=== PATIENT | male | born 1960 | race Caucasian/White ===

== ENCOUNTER 2023-07-06 08:45 | Outpatient (CLI) | payer MEDICARE, SELFPAY ==
--- NOTE | ~2023-07-06 | XR_ITS ---
EXAMINATION: XR lg joint inject/asp w image DATE: 07/06/2023 09:39 INDICATION: Left hip osteoarthritis with pain TECHNIQUE: A time-out was performed to verify the patient's name, date of , and procedure to b e performed. The procedure including the risks, benefits, and alternatives was discussed with the pat ient. Risks discussed included bleeding and infection. The patient understood the risks and agreed to proceed. The skin overlying the left hip joint was prepped and draped in usual sterile fashion. An esthetic was administered with 1% lidocaine subcutaneously. A 22 G needle was advanced under fluoros copic guidance into the joint. Injection of 1 mL of Omnipaque 240 confirmed intra-articular position of the needle. Subsequently, injectate consisting of 3 mL of a 2:1 mixture of 0.5% Marcaine: 80 mg/ mL Depo-Medrol for a total dosage of 80 mg Depo-Medrol was instilled. Washout of contrast was seen co nfirming intra-articular administration. The needle was removed and the entry site was cleaned and dr essed. There were no immediate complications. Fluoroscopy exposure time was 0.1 minutes. The total n umber of images was 2. Total DAP was 0.357 Gycm^2 FINDINGS: Real-time fluoroscopy demonstrates the needle in the left hip joint. Patient's pain prior t o procedure:5/10. Patient's pain following the procedure: 0/10. IMPRESSION: 1. Successful left hip joint injection of local anesthetic and steroid with decrease in the patient's presenting pain. Reviewed, dictated and finalized at location A. GER CULINARY IMPRESSION: 1. Successful left hip joint injection of local anesthetic and steroid with dec rease in the patient's presenting pain.
== END 2023-07-06 08:46 | disposition home or self-care (01) ==
PROVIDERS: PCP Family Medicine; Visit Provider Orthopaedic Surgery
DX: M16.12 Unilateral primary osteoarthritis, left hip (principal)
CPT/HCPCS: 20610; 77002; J1040; Q9966

== ENCOUNTER 2023-07-26 14:23 | Emergency (ER) | payer MEDICARE, SELFPAY ==
--- NOTE | 2023-07-26 14:26 | ED.URI ---
HPI - URI/Sore Throat General Chief Complaint: Nausea/Vomiting/Diarrhea Stated Complaint: vomiting, flu like symptoms Time Seen by Provider: 07/26/23 14:26 Source: patient Mode of arrival: ambulatory Limitations: no limitations History of Present Illness HPI Narrative: Jhony is a 63-year-old male patient presenting to the clinic today with complaints of vomiting and flu-like symptoms. He reports symptoms started 2 days ago. He reports he is having nausea, vomiting, diarrhea, cough, and nasal congestion. Has had a temperature greatest of 100.7F. Denies any chest pain, shortness breath, or abdominal pain. Has had approximately 10 diarrhea stools per day and has vomited approximately 6 times in the past 2 days. Denies any blood in his stool or emesis. MD elicited complaint: sore throat and nasal congestion Related Data Home Medications Medication Instructions Recorded Confirmed albuterol sulfate 90 mcg/actuation 2 puff inhalation Q2-6H 07/26/23 07/26/23 aerosol inhaler atorvastatin 20 mg tablet 40 mg PO DAILY 07/26/23 07/26/23 furosemide 20 mg tablet 20 mg PO DAILY 07/26/23 07/26/23 gabapentin 400 mg capsule 400 mg PO DAILY 07/26/23 07/26/23 levetiracetam 750 mg tablet 750 mg PO DAILY 07/26/23 07/26/23 mupirocin 2 % topical ointment 1 applic topical DAILY 07/26/23 07/26/23 rifaximin 550 mg tablet (Xifaxan) 550 mg PO DAILY 07/26/23 07/26/23 tiotropium bromide 2.5 2 puff inhalation DAILY 07/26/23 07/26/23 mcg/actuation mist for inhalation (Spiriva Respimat) trazodone 150 mg tablet 100 mg PO QHS 07/26/23 07/26/23 Allergies Allergy/AdvReac Type Severity Reaction Status Date / Time hydrochlorothiazide Allergy Mild Unknown Verified 07/26/23 14:58 lisinopril Allergy Mild Unknown Verified 07/26/23 14:58 Bumble Bee Allergy Mild Unknown Uncoded 07/26/23 14:58 Review of Systems Review of Systems: Pertinent positives per HPI. Patient denies anyrash, headache, visual changes, dizziness, shortness of breath, chest pain, palpitations, constipation, abdominal pain, or any urinary issues. PMFSH Surgical History Surgical History H/O right knee surgery H/O rotator cuff surgery right and left H/O Spinal surgery History of hernia surgery History of total right hip arthroplasty Family History Family History Unknown Asthma Hypertension Depression Heart disease Hyperlipidemia Social History Social History Smoking status: Current every day smoker Tobacco type: cigarettes Alcohol intake: never Substance use type: does not use Living arrangements: with family Occupation/Education: other Additional occupation/education comments: disabled Gender identity (if verbalized by the patient): Male Comments At the time of my signature, I reviewed and agree with the nursing past medical, surgical, social, and family history. There is no relevant family history pertinent to the patient complaint. Exam Narrative: General: Well-developed, well nourished, in no apparent distress Head: Normocephalic, atraumatic Eyes: Pupils equally round and reactive to light bilaterally, EOM intact, sclera and conjunctive clear, no discharge, lids normal Ears: TMs intact and clear, ear canals ceruminous, no drainage, grossly hearing normal. Nose: Nares patent, clear discharge, no inflammation, no sinus tenderness. Mouth: Oral pharynx without lesions or masses, good dentition, MM dry. Neck: Supple, trachea midline, no enlargement of anterior or posterior cervical nodes, no thyroid masses or goiter palpable. Cardio: Regular rate and rhythm, s1 and s2 normal, no murmur appreciated. Resp: Clear to auscultation bilaterally, no rhonchi, rales, wheezing or rubs Abdomen: Soft, pliable, bowel sounds present all 4 quadrants, nontender to palpation, no orga
[2023-07-26 14:32] VITALS: BP 169/97; PULSE 87; RESP 16; TEMP 36.2; O2SAT 100
[2023-07-26 14:46] VITALS: BP 144/84; PULSE 95
[2023-07-26 14:47] VITALS: BP 155/102; PULSE 86
[2023-07-26 14:48] VITALS: BP 147/99; PULSE 95
== END 2023-07-26 15:10 | disposition home or self-care (01) ==
PROVIDERS: Emergency Provider Nurse Practitioner Family; PCP Family Medicine
DX: K52.9 Noninfective gastroenteritis and colitis, unspecified (principal); E86.0 Dehydration; B34.9 Viral infection, unspecified; Z20.822 Contact with and (suspected) exposure to COVID-19; F17.210 Nicotine dependence, cigarettes, uncomplicated; Z96.641 Presence of right artificial hip joint
CPT/HCPCS: 81003; 87426; 87804; 99213; G0463

== ENCOUNTER 2024-05-28 13:16 | Outpatient (CLI) | payer MEDICARE, SELFPAY ==
[2024-05-28 14:23] LABS: Albumin Level 4.2 g/dL (3.5-5.1)
== END 2024-05-28 13:17 | disposition home or self-care (01) ==
PROVIDERS: PCP Family Medicine; Visit Provider Orthopaedic Surgery
DX: K74.60 Unspecified cirrhosis of liver (principal); K74.00 Hepatic fibrosis, unspecified
CPT/HCPCS: 36415; 82040

== ENCOUNTER 2024-10-28 16:11 | Emergency (ER) | payer MEDICARE, SELFPAY ==
[2024-10-28 16:16] VITALS: BP 178/96; PULSE 106; RESP 12; TEMP 36.7; O2SAT 93
--- OUTSIDE RECORDS SUMMARY | 2024-10-28 16:28 | XMS_ITS | Data Portability ---
Author Organization [place] [facility], Main Office Address [address] [place] [address] Care Team Providers Care Lapping Machine Tender Name Role Phone NAKUSH WAN Primary Care Provider Assessment Encounter Date Assessment Date Assessment LastModified by Organization Details LastModified Time 02/23/2024 02/23/2024 63 yo M with - DM II, new - HLD, improved - B/L KNEE PAIN, chronic - HTN - GERD - NEUROPATHY - CHRONIC INSOMNIA - COPD - CIRRHOSIS OF LIVER - INTRACRANIAL ANEURYSM - SMOKER - H/O ALCOHOL ABUSE HbA1c: 6.7(11/11/23) LDCT chest: 11/11/23. Annual labs: 11/01/23. X-ray knees: 11/05/22. Annual labs: 10/13/22. LDCT chest: 08/12/22. D/w pt in detail about his conditions, recent labs & imagines and further plan of care. Meds as directed. Cont OTC knee sleeve as directed. Diet and exercise explained in detail. BP & DM diary education given and call us if any concerns. Currently smoking about few cigs per day. Encouraged pt to quit. F/u with Ophtho as per schedule. F/u with Paint Supervisor as per schedule. Cont f/u with Neurosurgeon at [place] as per schedule. Cont f/u with Neuro at [place] as per schedule. Cont f/u with Emergency Management Program Specialist at [facility] as per schedule. Cont f/u with PT as per schedule. HM: Colonoscopy - 2019, normal as per pt. Cont f/u with GI as per schedule. US AAA - At 67 yrs. Flu - Pt declined. Tdap, Pneumo, Shingrix - At pharmacy/HD. F/u in 3 months. A1c in 05/27. Annual labs, LDCT in 10/26. Not available 02/23/2024 13:00:18 08/02/2024 08/02/2024 64 yo M with - DM II, improved - HLD, improved - B/L KNEE PAIN, chronic - HTN - GERD - NEUROPATHY - CHRONIC INSOMNIA - COPD - CIRRHOSIS OF LIVER - INTRACRANIAL ANEURYSM - SMOKER - H/O ALCOHOL ABUSE HbA1c: 6.7(11/11/23) - 5.7(05/14/25) LDCT chest: 11/11/23. Annual labs: 11/01/23. X-ray knees: 11/05/22. Annual labs: 10/13/22. LDCT chest: 08/12/22. D/w pt in detail about his conditions, recent labs & imagines and further plan of care. Meds as directed. Cont OTC knee sleeve as directed. Diet and exercise explained in detail. BP & DM diary education given and call us if any concerns. Currently smoking about few cigs per day. Encouraged pt to quit. F/u with Ophtho as per schedule. F/u with Paint Supervisor as per schedule. Cont f/u with Neurosurgeon at [place] as per schedule. Cont f/u with Neuro at [place] as per schedule. Cont f/u with Emergency Management Program Specialist at [facility] as per schedule. Cont f/u with PT as per schedule. HM: Colonoscopy - 2019, normal as per pt. Cont f/u with GI as per schedule. US AAA - At 67 yrs. Flu - Pt declined. Tdap, Pneumo, Shingrix - At pharmacy/HD. F/u in 3 months. Annual labs, LDCT in 10/26. Not available 08/02/2024 11:35:39 Plan of Treatment Reminders Order Date Submit Date Provider Last Modified By Organization Details Last Modified Time Details Appointments Physical/ Annual Wellness 30 2024 10:00A M Ankush Wan MD Not available Not available Not available Lab glycohemo globin, total, blood 2023 024 [email or web address] [facility] [address] [place], [address], 05/14/2024 16:14:45 Referral None recorded. Procedures None recorded. Surgeries None recorded. Imaging None recorded. Medication Orders propranol ol 20 mg tablet 2024 [facility]37885, [address], [place], [place], [id number], 08/02/2024 12:27:08 spironola ctone 50 mg tablet 2024 025 [facility] #92327, [address], [place], [place], [id number], 08/02/2024 12:27:12 furosemid e 20 mg tablet 2024 [facility] #18788, [address], [place], [place], [id number], 08/02/2024 12:27:04 albuterol sulfate HFA 90 mcg/actua tion aerosol inhaler 2024 025 [facility] #55571, [address], [place], [place], [id number], 08/02/2024 12:26:59 Spiriva Respimat 2.5 mcg/actua tion solution for inhalatio n 2024 [facility] #79071, [address], [place], [place], [id number], 08/02/2024 12:26:39 atorvasta tin 20 mg tablet 2024 [facility] #68436, [address], [place], [place], [id number], 08/02/2024 12:27:05 trazodone 150 mg tablet 2024 025 [facility] #00160, [address], [place], [place], [id number], 08/02/2024 12:26:49 Xifaxan 550 mg tablet 2024 025 [facility] #27818, [address] [facility], [place], [place], [id number], 08/02/2024 12:27:03 levetirac etam 750 mg tablet 2024 025 [facility] #36823, [address] [facility], [place], [place], [id number], 08/02/2024 12:27:13 metformin ER 500 mg tablet,ex tended release 24 hr 2024 025 [facility] #41358, [address] [facility], [place], [place], [id number], 08/02/2024 12:27:03 gabapenti n 400 mg capsule 2024 025 [facility] #78011, [address] [facility], [place], [place], [id number], 08/02/2024 12:27:06 propranol ol 20 mg tablet 2023 024 [facility] [address] [facility], [place], [place], [id number], 02/23/2024 12:55:47 spironola ctone 50 mg tablet 2023 024 [facility], [address] [facility], [place], [place], [id number], 02/23/2024 12:55:45 furosemid e 20 mg tablet 2023 024 [facility], [address] [facility], [place], [place], [id number], 02/23/2024 12:55:39 albuterol sulfate HFA 90 mcg/actua tion aerosol inhaler 2023 024 [facility]69886, [address] [facility], [place], [place], [id number], 02/23/2024 12:55:45 Spiriva Respimat 2.5 mcg/actua tion solution for inhalatio n 2023 [facility] #22591, [address] [facility], [place], [place], [id number], 02/23/2024 12:55:47 atorvasta tin 20 mg tablet 2023 [facility] #06740, [address] [facility], [place], [place], [id number], 02/23/2024 12:55:49 trazodone 150 mg tablet 2023 [facility] #67756, [address] [facility], [place], [place], [id number], 02/23/2024 12:55:43 Xifaxan 550 mg tablet 2023 [facility] #85186, [address] [facility], [place], [place], [id number], 02/23/2024 12:55:43 levetirac etam 750 mg tablet 2023 [facility] #67864, [address] [facility], [place], [place], [id number], 02/23/2024 12:55:46 metformin ER 500 mg tablet,ex tended release 24 hr 2023 [facility] #15738, [address] [facility], [place], [place], [id number], 02/23/2024 12:55:40 gabapenti n 400 mg capsule 2023 [facility] #41615, [address] [facility], [place], [place], [id number], 02/23/2024 12:55:42 Patient TargetsNo targets recorded. Patient InstructionsNo instructions recorded. Reason for Referral None Reported. Results Created Date Observation Date Name Description Value Unit Range Abnormal Flag Note LastModifiedBy Organization Detail LastModifiedTime 02/23/20 24 02/24/2024 HEMOG LOBIN A1C HA1C 5.8 % 4.0-6. 0 Diabe marshall Scree crystal Crite tawana: <5.7% Consi stent with absen ce of diabe marshall 5.7-6 .4% Consi stent with incre ased risk for diabe marshall (pred iabet es) >OR=6 .5% Consi stent with diabe marshall REFER ENCE: Diabe marshall Care (Cifuentes ppl.1 ):s13 -s22 Not Available [facility] [address] [place], [address], 02/24/2024 09:37:58 05/14/20 24 05/14/2024 HEMOG LOBIN A1C HA1C 5.7 % 4.0-6. 0 Diabe marshall Scree crystal Crite tawana: <5.7% Consi stent with absen ce of diabe marshall 5.7-6 .4% Consi stent with incre ased risk for diabe marshall (pred iabet es) >OR=6 .5% Consi stent with diabe marshall REFER ENCE: Diabe amrshall Care (Cifuentes ppl.1 ):s13 -s22 Not Available [facility] [address] [place], [address], 05/14/2024 20:53:43 Result Notes None recorded. Problems Name Problem SNOMED Code Status Onset Date Resolution Date Notes Provider Name and Address Organization Details Recorded Time Shoulder joint pain 429559053 Lucinda Brown LPN,CREEL OPERATOR null, [place] [facility] 4 13:37:45 Recurrent dislocation of shoulder region 05448544 Lucinda Brown LPN,CREEL OPERATOR null, [place] [facility] 4 13:37:45 Disorder of rotator cuff 643092153 Lucinda Brown, DECATIZER,CREEL OPERATOR null, [place] [facility] 4 13:37:45 Disorder of bursa of shoulder region 82376541 Active Jaye Brown LPN,CREEL OPERATOR null, [place] [facility] 4 13:37:45 Osteoarthri tis of shoulder region 57238686 Active Jaye Brown LPN,CREEL OPERATOR null, [place] [facility] 4 13:37:45 Impacted cerumen of bilateral ears 4987805230700 108 Active 2022 Jaye Brown LPN,CREEL OPERATOR null, [place] [facility] 4 13:37:45 Intracrania l aneurysm [id number] [facility] 2022 Jaye Brown LPN,CREEL OPERATOR null, [place] [facility] 4 13:37:45 Chronic obstructive pulmonary disease 65453588 Active 2022 Jaye Brown LPN,CREEL OPERATOR null, [place] [facility] 4 13:37:45 Cirrhosis of liver 50120059 Active 2022 Jaye Brown LPN,CREEL OPERATOR null, [place] [facility] 4 13:37:45 Gastroesoph ageal reflux disease without esophagitis [id number] [facility] 2022 Jaye Brown LPN,CREEL OPERATOR null, [place] [facility] 4 13:37:45 Bronchitis 37721916 Active 2022 Jaye Brown LPN,CREEL OPERATOR null, [place] [facility] 4 13:37:45 History of alcohol abuse 590854054 Active 2022 Jaye Brown LPN,CREEL OPERATOR null, [place] [facility] 4 13:37:45 Hypertensiv e disorder 88397862 Active 2022 Jaye Brown LPN,CREEL OPERATOR null, [place] [facility] 4 13:37:45 Neuropathy 556884944 Active 2022 Jaye Brown LPN,CREEL OPERATOR null, [place] [facility] 4 13:37:45 Chronic insomnia 815387985 Active 2022 Jaye Brown LPN,CREEL OPERATOR null, [place] [facility] 4 13:37:45 Hyperlipide cole 52763799 Active 2022 Jaye Brown LPN,CREEL OPERATOR null, [place] [facility] 4 13:37:45 Pain of left knee joint 2740770080604 07 Active 2022 Jaye Brown LPN,CREEL OPERATOR null, [place] [facility] 4 13:37:45 Pain of right knee joint 0834196910587 00 Active 2022 Jaye Brown LPN,CREEL OPERATOR null, [place] [facility] 4 13:37:45 Hepatic encephalopa thy 18973462 Active 2022 Jaye Brown LPN,CREEL OPERATOR null, [place] [facility] 4 13:37:45 Chondromala karen of bilateral patellas 0475934934418 9100 Active 2022 Jaye Brown LPN,CREEL OPERATOR null, [place] [facility] 4 13:37:45 Acute meniscal tear, medial 246368245 Active 2022 Jaye Brown LPN,CREEL OPERATOR null, [place] [facility] 4 13:37:45 Osteoarthri tis of left hip joint 1383930229246 08 Active 2022 Jaye Brown LPN,CREEL OPERATOR null, [place] [facility] 4 13:37:45 Acute meniscal tear, medial 399493320 Active 2022 Jaye Brown LPN,CREEL OPERATOR null, [place] [facility] 4 13:37:45 Pain of bilateral knee joints 4859428481457 04 Active 2022 Jaye Brown LPN,CREEL OPERATOR null, [place] [facility] 4 13:37:45 Seizure disorder 573649373 Active 2022 Jaye Brown LPN,CREEL OPERATOR null, [employer] [facility] [employer] [facility] [employer] 4 13:37:45 Type 2 diabetes mellitus without complicatio n 000523300 Active 2023 Ankush Wan MD [address], [address], [place], [address], [employer] 4 14:13:10 Cigarette smoker 66597323 Active 2024 Ankush Wan MD [address], [address], [place], [address], [facility] 18:43:00 Smoker 92632009 Active 2024 Ankush Wan MD [address], [address], [place], [address], [employer] 11:34:39 Problem Notes None recorded. Procedures Surgical History Date Name Laterality Status Provider Name and Address Organization Details Recorded Time 08/02/19 25 Smoking Cessation completed Ankush Wan MD [address], [address], [place], [address], [email or web address] 08/02/2024 11:36:09 06/25/20 24 Nail Debridement completed Jewel Hutrado DPM [address], [address], [place], [address], [employer] 06/25/2024 16:09:45 12/13/19 24 Nail Debridement completed Jewel Hurtado DPM [address], [address], [place], [address], [facility] 12/13/2023 14:14:54 11/22/19 24 Ear Irrigation completed Ankush Wan MD [address], [address], [place], [address], [employer] [facility] 11/22/2023 14:17:53 11/01/19 24 Medicare Wellness CPT Code, subsequent completed Nicolas White [employer] [facility] 11/01/2023 11:59:55 09/20/19 24 Transitional_Car e_Management completed Nicolas White [place] [facility] 09/20/2023 12:26:05 08/09/19 24 Smoking Cessation completed Ankush Wan MD [address] [facility], [address], [place], [address], [facility] 08/09/2023 14:56:51 05/19/20 23 Smoking Cessation completed Ankush Wan MD [address] [facility], [address], [place], [address], [facility] 05/19/2023 14:54:27 01/14/20 23 Ortho - Cortisone Injection completed Isac Mai MD [address] [facility], [address], [place], [address], [facility] 01/13/2023 13:51:58 09/23/19 23 Ear Irrigation completed Ankush Wan MD [address] [facility], [address], [place], [address], [facility] 09/22/2022 11:06:53 Knee arthroscopy/surg luz completed Not Available [facility] 09/02/2022 01:48:12 Shoulder joint surgery completed Not Available [facility] 09/02/2022 01:48:12 prosthetic arthroplasty of hip completed Not Available [facility] 09/02/2022 01:48:12 Thoracic surgery ss completed Not Available [facility] 09/02/2022 01:48:12 total replacement of hip completed Jaye Brown LPN, [facility] [place] [facility] 08/01/2023 13:37:45 Shoulder completed Jaye Brown LPN, [facility] [place] [facility] 08/01/2023 13:37:45 Knee completed Jaye Brown LPN, [facility] [place] [facility] 08/01/2023 13:37:45 Hernia Surgery completed Jaye Brown LPN, [facility] [place] [facility] 08/01/2023 13:37:45 Back Surgery completed Jaye Brown LPN, [facility] [place] [facility] 08/01/2023 13:37:45 Imaging Results None recorded. Procedure Notes None recorded. Medical Equipment None Reported. Allergies Allergen ID Allergen Name Allergen Category Reaction Reaction Severity Criticality Documentation Date Start Date Code Code System Note Provider Name and Address Organization Details Recorded Time 57921 lisinopri l medicatio n Not available Not available Not available 09/02/2022 96924 RxNorm Michelle Gaviria RN null, [facility] 4 14:29:05 35022 Lexapro medicatio n Not available Not available Not available 01/13/2023 70403 1 [facility], [facility] 4 13:37:45 96288 lisinopri l medicatio n Not available Not available Not available 01/13/2023 02544 RxNorm [facility], [facility] 4 13:37:45 Medications Name Sig Start Date Stop Date Status Note LastModified by Organization Details LastModified Time prednisone 10 mg tablet 05/19 completed Not Available Not Available Not Available atorvastati n 20 mg tablet TAKE 1 TABLET BY MOUTH EVERY DAY AT BEDTIME active Not Available Not Available No t Available atorvastati n 10 mg tablet Take 1 tablet every day by oral route at bedtime for 90 days. 04/28 completed Not Available Not Available Not Available azithromyci n 250 mg tablet TK 2 TS PO ON DAY 1, THEN TK 1 T PO D FOR 4 DAYS 01/13 completed Not Available Not Available Not Available hydrocortis one 1 % topical ointment APPLY 2 TIMES A DAY FOR 14 DAYS 01/13 completed Not Available Not Available Not Available gabapentin 400 mg capsule TAKE 1 CAPSULE BY MOUTH EVERY 8 HOURS DIRECTED active Not Available Not Available No t Available Debrox 6.5 % ear drops INSTILL 4 DROPS INTO AFFECTED EAR(S) BY OTIC ROUTE 2 TIMES PER DAY 08/09 completed Not Available Not Available Not Available thiamine HCl (vitamin B1) 100 mg tablet Take 1 tablet every day by oral route. active Not Available Not Available No t Available amlodipine 5 mg tablet active Not Available Not Available Not Available prednisone 10 mg tablets in a dose pack Take 1 tab by mouth, 3 times a day for 3 daysTake 1 tab by mouth 2 times a day for 2 daysTake 1 tab by mouth once a day for 1 day 08/09 completed Not Available Not Available Not Available propranolol 10 mg tablet TAKE 1 TABLET BY MOUTH TWICE DAILY DIRECTED 08/09 completed Not Available Not Available Not Available Kenalog 10 mg/mL suspension for injection Take 40 mg by injection route. 08/09 completed [facility]: [phone]- [phone] Not Available Not Available Not Available cephalexin 500 mg capsule TAKE 1 CAPSULE BY MOUTH TWICE DAILY 01/13 completed Not Available Not Available Not Available pantoprazol e 40 mg tablet,shaneka yed release TAKE 1 TABLET BY MOUTH EVERY DAY IN THE MORNING 2024 active Not Available Not Available Not Avai lable trazodone 150 mg tablet Take 1 tablet every day by oral route at bedtime for 90 days. 2024 active Not Available Not Available Not Avai lable gabapentin 300 mg capsule TAKE 1 CAPSULE BY MOUTH EVERY 8 HOURS DIRECTED 01/13 completed Not Available Not Available Not Available levetiracet am 750 mg tablet TAKE 1 TABLET BY MOUTH EVERY 12 HOURS DIRECTED active Not Available Not Available No t Available mupirocin 2 % topical ointment APPLY TO NARES TWICE DAILY STARTING 5 DAYS PRIOR TO SURGERY ENDING THE DAY PRIOR active Not Available Not Available No t Available furosemide 20 mg tablet TAKE 1 TABLET BY MOUTH EVERY DAY IN THE MORNING active Not Available Not Available No t Available methylpredn isolone 4 mg tablets in a dose pack FOLLOW PACKAGE DIRECTION S 01/13 completed Not Available Not Available Not Available albuterol sulfate HFA 90 mcg/actuati on aerosol inhaler INHALE 2 PUFFS BY MOUTH EVERY 4 TO 6 HOURS NEEDED active Not Available Not Available No t Available propranolol 20 mg tablet TAKE 1 TABLET BY MOUTH TWICE DAILY DIRECTED 2024 active Not Available Not Available Not Avai lable ondansetron 4 mg disintegrat ing tablet DISSOLVE 1 TABLET ON THE TONGUE EVERY 6 HOURS FOR 3 DAYS NEEDED FOR NAUSEA OR VOMITING 08/09 completed Not Available Not Available Not Available metformin ER 500 mg tablet,exte nded release 24 hr Take 1 tablet twice a day by oral route after meal(s) for 90 days. 2024 active Not Available Not Available Not Avai lable spironolact one 50 mg tablet Take 1 tablet every day by oral route as directed for 90 days. 2024 active Not Available Not Available Not Avai lable amoxicillin 875 mg-hope lutz clavulanate 125 mg tablet 07/29 completed Not Available Not Available Not Available oxycodone 5 mg tablet active Not Available Not Available No t Available lactulose 10 gram/15 mL oral solution TAKE 15 ML BY MOUTH TWICE DAILY DIRECTED 08/09 completed Not Available Not Available Not Available Centrum active Not Available Not Avail able Not Available Xifaxan 550 mg tablet Take 1 tablet twice a day by oral route as directed for 30 days. 2024 active Not Available Not Available Not Avai lable Probiotic active Not Available Not Chely ilable Not Available ropivacaine (PF) 5 mg/mL (0.5 %) injection solution Take 40 mg by injection route. 08/09 completed [facility] [phone] Not Available Not Available Not Available Spiriva Respimat 2.5 mcg/actuati on solution for inhalation INHALE 1 PUFF BY MOUTH EVERY DAY DIRECTED active Not Available Not Available No t Available Spiriva Respimat 1.25 mcg/actuati on solution for inhalation INHALE 1 PUFF BY MOUTH ONCE A DAY 01/13 completed Not Available Not Available Not Available Vitals Date Recorded Body height Body mass index (BMI) Body weight Oxygen saturation Oxygen saturation in Arterial blood by Pulse oximetry Body temperature Heart rate Systolic blood pressure Diastolic blood pressure Provider Name and Address Organization Details Last Updated DateTime 4 172.72 cm 24.8 kg/m2 55850.5 6 g 96 % 96 % 98.2 [degF] 70 /min 165 mm[Hg] 89 mm[Hg] NOELLE Pisano Brett ND [employer] [facility] 4 12:25:16 Date Recorded Body height Body mass index (BMI) Body weight Body temperature Heart rate Oxygen saturation Oxygen saturation in Arterial blood by Pulse oximetry Systolic blood pressure Diastolic blood pressure Provider Name and Address Organization Details Last Updated DateTime 4 172.72 cm 23.6 kg/m2 19604.5 2 g 98.1 [degF] 78 /min 98 % 98 % 138 mm[Hg] 80 mm[Hg] Nicolas White [place] [employer] 4 12:46:59 Date Recorded Body height Body mass index (BMI) Body weight Heart rate Respiratory rate Oxygen saturation Oxygen saturation in Arterial blood by Pulse oximetry Body temperature Systolic blood pressure Diastolic blood pressure Provider Name and Address Organization Details Last Updated DateTime 4 172.72 cm 23.6 kg/m2 70038.8 2 g 69 /min 14 /min 97 % 97 % 98 [degF] 130 mm[Hg] 80 mm[Hg] Nanci Arnett [place] [employer] [facility] 4 14:02:06 Date Recorded Body height Body mass index (BMI) Body weight Body temperature Oxygen saturation Oxygen saturation in Arterial blood by Pulse oximetry Heart rate Provider Name and Address Organization Details Last Updated DateTime 5 172.72 cm 24.7 kg/m2 61927.6 6 g 97.5 [degF] 96 % 96 % 77 /min Mary Lou Villasenor RN [place] [employer] [facility] 5 12:16:40 Date Recorded Systolic blood pressure Diastolic blood pressure Provider Name and Address Organization Details Last Updated DateTime 08/02/2024 146 mm[Hg] 84 mm[Hg] Ankush Wan MD [address] [facility], [address], [address], [place] [employer] [facility] 08/02/2024 12:30:04 Social History Question Answer Notes LastModified by Organization Details LastModified Time Tobacco Smoking Status Current Every Day Smoker TRACY Bonilla, [place] [employer] [facility] 01/13/2023 13:48:15 Do You Have An Advance Directive? No [id number] Information not available 09/02/2022 What Is Your Level Of Alcohol Consumption? None Information not available 01/13/2023 Is Blood Transfusion Acceptable In An Emergency? Yes Information not available 08/09/2023 What Is Your Level Of Caffeine Consumption? None Information not available 08/09/2023 What Is Your Code Status? Full Code Information not available 08/09/2023 In The 14 Days Before Symptom Onset, Have You Had Close Contact With A Laboratory-conf irmed COVID-19 While That Case Was Ill? No [id number] Information not available 09/02/2022 In The 14 Days Before Symptom Onset, Have You Had Close Contact With A Person Who Is Under Investigation For COVID-19 While That Person Was Ill? No [id number] Information not available 09/02/2022 Are You Currently Employed? No Disability Information not available 08/09/2023 What Type Of Diet Are You Following? REGULAR [id number] Information not available 09/02/2022 Which Illicit Or Recreational Drugs Have You Used? None Information not available 08/09/2023 What Is The Highest Grade Or Level Of School You Have Completed Or The Highest Degree You Have Received? [id number] X2 MIGRATION.300 [id number] Information not available 09/02/2022 How Many Days Of Moderate To Strenuous Exercise, Like A Brisk Walk, Did You Do In The Last 7 Days? 3 Information not available 08/09/2023 On Those Days That You Engage In Moderate To Strenuous Exercise, How Many Minutes, On Average, Do You Exercise? 15 Information not available 08/09/2023 Have There Been Any Changes To Your Family Or Social Situation? Yes Anuresym Surgery In 2 Weeks Information not available 08/09/2023 Are There Any Guns Present In Your Home? Yes MIGRATION.030 [id number] Information not available 09/02/2022 [facility] MIGRATION.030 [id number] Information not available 09/02/2022 Do You Have A Medical Power Of Ecg Technician? No MIGRATION.030 101706 Information not available 09/02/2022 What Was The Date Of Your Most Recent Tobacco Screening? 12/13/2023 Information not available 12/13/2023 How Many Children Do You Have? 0 Information not available 08/09/2023 Do You Have Any Pets? No MIGRATION.0301 [id number] Information not available 09/02/2022 What Is Your Relationship Status? MIGRATION.0301 [id number] Information not available 09/02/2022 Do You Use Your Seat Belt Or Car Seat Routinely? Yes Information not available 08/09/2023 Do You Have Smoke And Carbon Monoxide Detectors In Your Home? Yes MIGRATION.0301 [id number] Information not available 09/02/2022 At What Age Did You Start Smoking Tobacco? 32 MIGRATION.0301 [id number] Information not available 09/02/2022 Are You Passively Exposed To Smoke? No MIGRATION.0301 573647 Information not available 09/02/2022 Are There Any Smokers In Your House? No MIGRATION.0301 [id number] Information not available 09/02/2022 How Much Tobacco Do You Smoke? No 2 Cig Per Day Information not available 08/09/2023 Do You Participate In Social Media? No Information not available 08/09/2023 What Types Of Sporting Activities Do You Participate In? Walking Information not available 08/09/2023 Do You Feel Stressed (tense, Restless, Nervous, Or Anxious, Or Unable To Sleep At Night)? [id number] MIGRATION.030 242685 Information not available 09/02/2022 Do You Use Any Illicit Or Recreational Drugs? Yes MJ- Says He Is Quitting Information not available 08/09/2023 Do You Use Sunscreen Routinely? No MIGRATION.0301 [id number] Information not available 09/02/2022 How Many Years Have You Smoked Tobacco? 25 Information not available 01/13/2023 Have You Recently Traveled Abroad? No MIGRATION.0301 [id number] Information not available 09/02/2022 Have You Used IV Drugs? No MIGRATION.0301 [id number] Information not available 09/02/2022 Are You Currently In School? No MIGRATION.0301 065504 Information not available 09/02/2022 Do You Or Have You Ever Used Any Other Forms Of Tobacco Or Nicotine? Yes MIGRATION.0301 776199 Information not available 09/02/2022 Sex: Unknown Functional Status Question Answer Note LastModified by Organizat ion Details LastModified Time What is your exercise level? Occasional just joined the [facility] [id number] Information not available 09/02/2022 Mental Status None recorded. Family History Relationship Description Onset Age of this Age Resolved Age Notes LastModified by Organization Details LastModified Time Father No current problems or disability MIGRATION.444 [id number] Not available 09/02/2022 01:48:16 Mother No current problems or disability MIGRATION.870 [id number] Not available 09/02/2022 01:48:16 Father Hypertensive disorder [email or web address] Not available 07/05 13:37:44 Mother Diabetes mellitus [email or web address] Not available 07/05 13:37:44 Medical History Condition Response SLEEP DISORDER Y HYPERTENSION Y ANEURYSM Y HIGH CHOLESTEROL / HYPERLIPIDEMIA Y HEPATITIS / LIVER DISEASE Y Past Encounters Encounter ID Performer Location Encounter Start Date Encounter Closed Date Diagnosis/Indication Diagnosis SNOMED-CT Code Diagnosis ICD10 Code Diagnosis Note [id number] [address] [address] 1 07/29/2022 00:00:00 07/29/2022 17:00:[id number] [address] 1 08/25/2022 00:00:00 08/25/2022 14:54:13 [id number] Ankush Wan MD [address] [address] 1 09/22/2022 10:29:03 09/22/2022 11:06:32 Adult health examination 427612232 Z00.00 Chronic ob structive pulmonary disease 87318147 J44.9 History of alcohol abuse 618127306 F10.10 Neuropathy 489924291 G62 .9 Cirrhosis of liver 007 K74.60 Impacted c erumen of bilateral ears 1063018540 456992 H61.23 [id number] Ankush Wan MD [address] [address] 1 10/13/2022 12:41:28 10/13/2022 13:03:57 Chronic obstructive pulmonary disease 02475962 J44.9 History of alcohol abuse 490399162 F10.10 Neuropathy 187885121 G62 .9 Cirrhosis of liver 007 K74.60 Chronic insomnia 9515440 04 F51.04 Intracranial aneurysm 12 0167039 I67.1 [id number] Ankush Wan MD [address] [address] 1 11/03/2022 14:55:24 11/03/2022 15:15:47 Chronic insomnia 248119952 F51.04 Chronic ob structive pulmonary disease 33042419 J44.9 Neuropathy 825184103 G62 .9 Cirrhosis of liver 007 K74.60 History of alcohol abuse 793445437 F10.10 Intracranial aneurysm 12 5770743 I67.1 Hyperlipidemia 45994403 E78.5 Pain of le ft knee joint 1090553682 14454 M25.562 Pain of ri ght knee joint 3239775424 10214 M25.561 [id number] Ankush Wan MD [address] [address] 1 11/17/2022 12:44:03 11/17/2022 13:51:48 [id number] Ankush Wan MD [address] [address] 1 11/25/2022 14:01:54 11/25/2022 14:23:09 Hyperlipidemia 47123661 E78.5 Chronic insomnia 5993767 04 F51.04 Chronic ob structive pulmonary disease 30412742 J44.9 Neuropathy 390638457 G62 .9 Cirrhosis of liver 007 K74.60 History of alcohol abuse 620378410 F10.10 Intracranial aneurysm 12 8266249 I67.1 Pain of le ft knee joint 0148227805 35270 M25.562 Pain of ri ght knee joint 9583639953 95285 M25.561 [id number] Ankush Wan MD [address] [address] 1 01/05/2023 12:29:42 01/05/2023 13:03:03 Pain of left knee joint 4898591188 95517 M25.562 Pain of ri ght knee joint 6903579843 90244 M25.561 Hyperlipidemia 70203884 E78.5 Chronic insomnia 8875303 04 F51.04 Chronic ob structive pulmonary disease 42825391 J44.9 Neuropathy 661350040 G62 .9 Cirrhosis of liver 90389 007 K74.60 History of alcohol abuse 290343140 F10.10 Intracranial aneurysm 12 6821955 I67.1 Hepatic encephalopathy 89293810 K76.82 [id number] Mumtaz Biggs PN,CREEL OPERATOR [facility] [address] [place] [address] 01/13/2023 13:13:19 01/13/2023 14:38:05 Chondromalacia of bilateral patellas 4018922632 7037996 M22.42 LEFT>RIGHT [id number] Ankush Wan MD [address] [address] 1 02/08/2023 14:46:20 02/08/2023 15:51:19 [id number] Ankush Wan MD [address] [address] 1 02/16/2023 14:01:24 02/16/2023 14:30:43 Pain of left knee joint 1960072701 86079 M25.562 Pain of ri ght knee joint 8869518698 33403 M25.561 Chronic insomnia 1251661 04 F51.04 Hyperlipidemia 77273539 E78.5 Chronic ob structive pulmonary disease 37652228 J44.9 Neuropathy 161073324 G62 .9 Cirrhosis of liver 007 K74.60 History of alcohol abuse 057250682 F10.10 Intracranial aneurysm 12 0942673 I67.1 Hepatic encephalopathy 31440684 K76.82 [id number] Mumtaz Biggs PN,CREEL OPERATOR [facility] [place] [address] [place] [address] 02/24/2023 14:01:06 02/24/2023 15:01:42 Chondromalacia of bilateral patellas 4518222594 9288665 M22.42 Acute meni scal tear, medial 575867164 S83.242A History of total replacement of right hip joint 5011957253 83769 Z96.641 Osteoarthr itis of left hip joint 8447106024 87650 M16.12 [id number] Ankush Wan MD [address] [address] 1 03/29/2023 14:54:22 03/29/2023 15:43:36 [id number] Ankush Wan MD [address] [address] 1 05/19/2023 14:07:07 05/19/2023 15:01:58 Hyperlipidemia 22775237 E78.5 Pain of le ft knee joint 6078794579 02799 M25.562 Pain of ri ght knee joint 5766705543 25120 M25.561 Chronic insomnia 0574355 04 F51.04 Chronic ob structive pulmonary disease 54094422 J44.9 Neuropathy 363921650 G62 .9 Cirrhosis of liver 32738 007 K74.60 History of alcohol abuse 265242298 F10.10 Intracranial aneurysm 12 8253626 I67.1 Hepatic encephalopathy 75173926 K76.82 Smoker 27691188 F17.753 [id number] Ankush Wan MD [address] [address] 1 08/09/2023 14:20:32 08/09/2023 15:00:23 Hyperlipidemia 53809292 E78.5 Pain of le ft knee joint 2583642961 30451 M25.562 Pain of ri ght knee joint 7094579053 57322 M25.561 Chronic insomnia 7019965 04 F51.04 Chronic ob structive pulmonary disease 54278758 J44.9 Neuropathy 839273839 G62 .9 Cirrhosis of liver 91673 007 K74.60 History of alcohol abuse 524817206 F10.10 Intracranial aneurysm 12 8377993 I67.1 Hepatic encephalopathy 90433715 K76.82 Smoker 00037379 F17.510 [id number] Ankush Wan MD [address] [address] 1 09/20/2023 12:24:20 09/20/2023 12:53:10 Transition of care 5249367932 105 Z75.8 Chronic insomnia 9149457 04 F51.04 Hyperlipidemia 55030269 E78.5 Pain of le ft knee joint 9423890374 17931 M25.562 Pain of ri ght knee joint 4541904708 25529 M25.561 Chronic ob structive pulmonary disease 39559101 J44.9 Neuropathy 640275620 G62 .9 Cirrhosis of liver 007 K74.60 History of alcohol abuse 960150766 F10.10 Intracranial aneurysm 12 5013292 I67.1 Repaired on 08/29/23 Hepatic encephalopathy 19585818 K76.82 Smoker 28771672 F17.200 Hospital i npatient stay within past 30 days 4933673841 106 Z76.89 [id number] Ankush Wan MD [address] [address] 1 11/01/2023 11:55:53 11/01/2023 12:32:59 Intracranial aneurysm 612263253 I67.1 Repaired on 08/29/23 Chronic insomnia 6843356 04 F51.04 Hyperlipidemia 31339782 E78.5 Pain of le ft knee joint 0916004227 13703 M25.562 Pain of ri ght knee joint 0934619466 73182 M25.561 Chronic ob structive pulmonary disease 32614595 J44.9 Neuropathy 790289937 G62 .9 Cirrhosis of liver 007 K74.60 History of alcohol abuse 128260162 F10.10 Hepatic encephalopathy 60308227 K76.82 Smoker 86709976 F17.200 Screening for malignant neoplasm of prostate 166332005 Z12.5 Impacted c erumen of bilateral ears 5383111604 578172 H61.23 Seizure disorder 6323875 02 G40.909 Adult heal th examination 042849825 Z00.00 [id number] Ankush Wan MD [address] [address] 1 11/22/2023 13:57:21 11/22/2023 14:33:42 Intracranial aneurysm 839638295 I67.1 Repaired on 08/29/23 Chronic insomnia 7220675 04 F51.04 Hyperlipidemia 19059715 E78.5 Pain of le ft knee joint 4906015481 44054 M25.562 Pain of ri ght knee joint 9849040855 65169 M25.561 Chronic ob structive pulmonary disease 20653902 J44.9 Neuropathy 459791151 G62 .9 Cirrhosis of liver 007 K74.60 History of alcohol abuse 712204240 F10.10 Hepatic encephalopathy 91640682 K76.82 Smoker 26005810 F17.200 Impacted c erumen of bilateral ears 2857654458 857052 H61.23 Seizure disorder 2657456 02 G40.909 Type 2 fran betes mellitus without complication 461979976 E11.9 [id number] Jewel Hurtado DPM [facility] [place] [address] [address] 1 12/13/2023 11:56:43 12/13/2023 14:16:08 [id number] Ankush Wan MD [address] [address] 02/23/2024 12:39:49 02/23/2024 13:04:41 Hyperlipidemia 08464573 E78.5 Intracranial aneurysm 12 0484400 I67.1 Repaired on 08/29/23 Chronic insomnia 7037480 04 F51.04 Pain of le ft knee joint 9599540276 67406 M25.562 Pain of ri ght knee joint 8777800582 67058 M25.561 Chronic ob structive pulmonary disease 64769156 J44.9 Neuropathy 109577385 G62 .9 Impacted c erumen of bilateral ears 6671054944 442421 H61.23 Cirrhosis of liver 007 K74.60 History of alcohol abuse 561535575 F10.10 Hepatic encephalopathy 91829101 K76.82 Smoker 52405193 F17.200 Seizure disorder 9907609 02 G40.909 Type 2 fran betes mellitus without complication 244223745 E11.9 [id number] Ankush Wan MD [address] [address] 1 05/14/2024 14:12:51 05/14/2024 16:28:52 [id number] Jewel Hurtado DPM [facility] [place] [address] [facility] [address] [place] [address] 06/25/2024 13:44:05 06/29/2024 04:07:33 [id number] Ankush Wan MD [facility] [address] [place] [address] 08/02/2024 12:07:54 08/02/2024 12:32:48 Type 2 diabetes mellitus without complication 061572633 E11.9 Hyperlipidemia 24757759 E78.5 Intracranial aneurysm 12 3844531 I67.1 Repaired on 08/29/23 Chronic insomnia 7211514 04 F51.04 Pain of le ft knee joint 8192068616 93405 M25.562 Pain of ri ght knee joint 0542763562 23850 M25.561 Chronic ob structive pulmonary disease 74473995 J44.9 Neuropathy 003321121 G62 .9 Cirrhosis of liver 58026 007 K74.60 History of alcohol abuse 767515248 F10.10 Hepatic encephalopathy 08554801 K76.82 Smoker 37591362 F17.200 Seizure disorder 4588605 02 G40.909 Health Concerns Section Related Observation LastModified by Organization Detai ls LastModified Time None Recorded Concern Status LastModified by Organization Details LastModified Time None Recorded Advance Directives Directive N: Payers Encounter Date Sequence Insurance Name Policy Number Policy Coleman Covered Member ID Coleman Member ID Guarantor Name 12/13/2023 1 [employer] (MEDICARE REPLACEMENT /ADVANTAGE - PPO) Jhony Gary [id number] Jhony Gary 02/23/2024 1 [employer] (MEDICARE REPLACEMENT /ADVANTAGE - PPO) Jhonysuellen Gary [id number] Jhony Gary 05/14/2024 1 [employer] (MEDICARE REPLACEMENT /ADVANTAGE - PPO) Jhony Gary [id number] Jhony Gary 06/25/2024 1 [employer] (MEDICARE REPLACEMENT /ADVANTAGE - PPO) Jhony Gary [id number] Jhony Gary 08/02/2024 1 [employer] (MEDICARE REPLACEMENT /ADVANTAGE - PPO) Jhony Gary [id number] Jhony Pinedamelany Notes Date Note Type Note Provider Name and Address Organization Details Recorded Time 12/13/2023 text/html Pt RTC for routi ne NIDDM foot care, evaluation and prevention. Jewel Hurtado DPM [address], [place], [address], [email or web address] 12/13/2023 14:14:59 02/23/2024 text/html Pt is here for f /u on his lab and chronic conditions. Doing overall much better now. Denies any problem with meds. Denies any new concern. Pt forgot to go for lab and wants to get it done today. Pt had his Lt intracranial aneurysm repair done at [facility] from 08/29/23 to 08/31/23. Pt is doing overall better now. They have used dissolvable sutures. Pt denies any concern with his wound. Pt is on Keppra 750mg po bid from neuro. Pt will be seeing them on 10/13/23 for f/u. No other concern. Pt says he his checking his BP at home and its good. His BP is always high in doctor's office. Doing much better with his Lt knee pain after PT. C/o b/l knee pain, L>R for last few weeks. Pt has h/o chronic knee pain and had procedure done in the past with Ortho several years ago.Pt is f/u with Neuro at [facility] and Neurosurgeon at [facility]. Pt is f/u with Emergency Management Program Specialist at [facility] for his liver cirrhosis.Pt has intracranial aneurysm and was seeing Neuro at [place] for it and is on meds by them.Pt has h/o alcohol abuse in the past and he has alcoholic cirrhosis due to that. Pt was seeing [facility] Program Specialist at [place] for it too. Ankush Wan MD [address], [place], [address], [email or web address] 02/23/2024 13:01:17 06/25/2024 text/html Pt RTC for c/o ingrown nails darline great toes, incurvated w/ swollen red borders. Especially inside border, Lt great toe. Jewel Hurtado DPM [address], [place], [address], [facility] Kintera Buck 06/25/2024 16:09:51 08/02/2024 text/html Pt is here for f /u on his lab, meds and chronic conditions. Doing overall much better. Denies any problem with meds. Denies any new concern. Pt had his Lt intracranial aneurysm repair done at [facility] from 08/29/23 to 08/31/23. Pt is doing overall better now. They have used dissolvable sutures. Pt denies any concern with his wound. Pt is on Keppra 750mg po bid from neuro. Pt will be seeing them on 10/13/23 for f/u. No other concern. Pt says he his checking his BP at home and its good. His BP is always high in doctor's office. Doing much better with his Lt knee pain after PT. C/o b/l knee pain, L>R for last few weeks. Pt has h/o chronic knee pain and had procedure done in the past with Ortho several years ago.Pt is f/u with Neuro at [facility] and Neurosurgeon at [facility]. Pt is f/u with Emergency Management Program Specialist at [facility] for his liver cirrhosis.Pt has intracranial aneurysm and was seeing Neuro at [place] for it and is on meds by them.Pt has h/o alcohol abuse in the past and he has alcoholic cirrhosis due to that. Pt was seeing [facility] Specialist at [place] for it too. Ankush Wan MD [address] [facility], [address], [place], [address], [email or web address] 08/02/2024 12:31:23
--- OUTSIDE RECORDS SUMMARY | 2024-10-28 16:29 | XMS_ITS | Clinical Summary ---
Author Organization [facility] Address [address] [place] [address] Care Team Providers Care Land Economist Name Role Phone Wan, Ankush Santamaria Primary Care Provider Unavailab le Source Comments [facility],non-owned Affiliates and Associated Physician Practices is amultiple site organization consisting of ambulatory clinics and hospital sitesin [place], [place], [place] and [place]. This disclosure is being madepursuant to the Care Everywhere program and may not contain all information available regarding this patient. Last updated 18.[facility] [employer] Allergies Active Allergy Reactions Criticality Noted Date Comments Steven Inhibitors Anaphylaxis,Angioed anuj High 02/09/2010 Bee Anaphylaxis High 12/27/2011 Allergic to bee stings Hydrochlorothiazide Anaphylaxis High 12/27/2011 Lisinopril-Hydrochlorothiaz velia Anaphylaxis High 01/14/2010 Wasp Venom Protein Anaphylaxis,Swellin g High 02/03/2012 Medications * Be aware that medications may not be up to date on this document. Alwaysverify current medications with the patient. albuterol HFA (Proventil; Ventolin; Proair) 108 (90 Base) MCG/ACT inhaler Take 2 (two) puffs by mouth every 4 hours as needed Active carbamide peroxide (Debrox) 6.5 % otic solution INSTILL 4 DROPS INTO AFFECTED EAR(S) BY OTIC ROUTE 2 TIMES PER DAY Active gabapentin (Neurontin) 300 MG capsule Take 1 capsule every 8 hours by oral route as directed for 90 days. Active levETIRAcetam (Keppra) 750 MG tablet Take 1 tablet every 12 hours by oral route as directed for 90 days. Active Multiple Vitamin (Daily Vites) TABS Take 1 (one) tablet by mouth once daily Active pantoprazole EC (Protonix) 40 MG tablet Take 1 tablet every day by oral route in the morning for 90 days. Active rifAXIMin (Xifaxan) 550 MG tablet TAKE 1 TABLET BY MOUTH TWICE DAILY DIRECTED Active traZODone (Desyrel) 150 MG tablet Take 1 tablet every day by oral route at bedtime for 90 days. Active tiotropium (Spiriva Respimat) 2.5 MCG/ACT inhaler Inhale 2 (two) puffs by mouth once daily 11/22/2023 Active metFORMIN ER 24hr (Glucophage XR) 500 MG tablet Take 1 (one) tablet by mouth 2 times daily Active acetaminophen (Tylenol) 500 MG capsule Take 1 (one) capsule by mouth every 6 hours as needed for Fever, Pain or Headache 08/30/2023 Active Probiotic Product (PROBIOTIC DAILY PO) Take 1 capsule by mouth Active atorvastatin (Lipitor) 20 MG tablet Take 1 (one) tablet by mouth at bedtime 02/16/2023 Active propranolol (Inderal) 20 MG tablet Take 1 (one) tablet by mouth 2 times daily 08/09/2023 Active Active Problems Problem Noted Date Diagnosed Date Benign prostatic hyperplasia without urinary obs truction 01/19/2023 01/19/2023 Nocturia 01/19/2023 01/19/2023 Prostatitis syndrome 01/19/2023 01/19/2023 Urinary frequency 01/19/2023 01/19/2023 Bronchitis 07/28/2022 01/19/2023 Chronic insomnia 07/28/2022 01/19/2023 Chronic obstructive lung disease 07/28/2022 01/19/2023 Cirrhosis of liver 07/28/2022 01/19/2023 Overview (12/27/2023): 12/27/23 Fibroscan CAP 223, LSM 11.7 kPa Gastroesophageal reflux disease without esophagi tis 07/28/2022 01/19/2023 History of alcohol abuse 07/28/2022 023 Intracranial aneurysm 07/28/2022 01/19/2023 Neuropathy 07/28/2022 01/19/2023 Smoker 07/28/2022 01/19/2023 Alcohol dependence with withdrawal 08/01/2014 01/19/2023 Alkaline phosphatase elevation 07/30/2014 0 01/19/2023 Elevated hemoglobin A1c 07/30/2014 01/20/20 23 Depression, major, recurrent 05/25/2013 Overview (01/19/2023): Admission 07/30/14-08/05/14: Evaluated by psychiatry during an inpatient stay for ETOH withdrawal. Diagnosed with Alcohol Dependence with intoxication and withdrawal and Depressive Disorder NOS. Increased Celexa to 40mg QD and continued trazodone to 50mg QD. 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 Alcohol withdrawal seizure 12/27/201101/19 Overview (01/19/2023): Overview: Now off librium taper Compression fracture 12/27/2011 01/19/2023 Overview (01/19/2023): Overview: Plan surgical intervention on 01/10/[address] Abnormal LFTs 10/29/2005 01/19/2023 Overview (01/19/2023): Minimally elevated alk phos. Told during last hospitalization that he passed a gall stone Hypertension 10/18/2003 01/19/2023 Family history of malignant neoplasm of prostate 07/19/2003 01/19/2023 Hyperlipidemia 07/19/2003 01/19/2023 Resolved Problems Problem Noted Date Diagnosed Date Resolved Date Bilateral impacted cerumen 07/28/2022 01/19/2023 0 02/02/2023 Asthma with status asthmaticus 06/25/2005 01/19/2023 02/02/2023 Immunizations Immunization Administration Dates Next Due HEP A/HEP B 07/10/2024 Family History Medical History Relation Name Comments Gout Father Other - Cardiac Father Other - Hepatic/Liver Neg Hx Relation Name Status Comments Father Social History Tobacco Use Types Packs/Day Years Used Date Smoking Tobacco: Every Day Cigarettes 0.3 25 Smokeless Tobacco: Never Tobacco Cessation:Ready to Q uit: Not Asked; Counseling Given: Not Answered Comments:12/27/23-1 cigarette per day 07/10/2024 - 2 cigarettes per day Alcohol Use Standard Drinks/Week Comments Not Currently 0 (1 standard drink = 0.6 oz pure alcohol) no alcohol since october 2022- has sponsor Sex and Gender Information Value Date Recorded Sex Assigned at Not on file Legal Sex Male 5:27 AM SALVAGE ENGINEER Gender Identity Not on file Sexual Orientation Not on file Last Filed Vital Signs Vital Sign Reading Time Taken Comments Blood Pressure 146/90 07/10/2024 11:43 AM SALVAGE ENGINEER Pulse 74 07/10/2024 11:43 AM SALVAGE ENGINEER Temperature 36.9 C (98.4 F) 07/10/2024 11:43 AM SALVAGE ENGINEER Respiratory Rate 16 12/14/2022 1:38 PM CDT Oxygen Saturation 98% 07/10/2024 11:43 AM SALVAGE ENGINEER Inhaled Oxygen Concentration - - Weight 73.8 kg (162 lb 9.6 oz) 07/10/2024 11:43 AM SALVAGE ENGINEER Height 172.7 cm (5' 8 ) 07/10/2024 11:43 AM SALVAGE ENGINEER Body Mass Index 24.72 07/10/2024 11:43 AM SALVAGE ENGINEER Plan of Treatment Upcoming Encounters Date Type Department Care Team (Late st Contact Info) Description 01/08/2025 9:30 AM CDT Appointment [facility] [address] [place] [id number] Travis Burnett MD [address] [place] [phone] 01/08/2025 11:00 AM CDT Office Visit [facility] [address] [place] [address] Travis Burnett MD [address] [place] [address] Health Maintenance Due Date Last Done Comments COLOGUARD (AGES 45-75) - COL ON CA SCREENING 1962 COLON MONITORING 1962 COLONOSCOPY - COLON CA SCREENING 1962 CT COLONOGRAPHY - COLON CA SCREENING 1962 Colorectal Cancer Screening 1962 FIT - COLON CA SCREENING 1962 FLEX SIG - COLON CA SCREENING 1962 HIV SCREENING 1977 DTAP/TDAP/TD VACCINES (1 - Tdap) 1981 PNEUMOCOCCAL VACCINE 50+ (1 of 2 - PCV) 1981 ZOSTER VACCINE (1 of 2) 2012 Respiratory Syncytial Virus (RSV) Vaccine Pt: or over 60 yrs (1 - Risk 60-74 years 1-dose series) 2022 COVID-19 VACCINE (1 - 2023-2 5 season) 2024 DEPRESSION SCREENING 07/04/2024 MEDICARE AWV CALENDAR YEAR 2024 HEPATITIS B VACCINE (2 of 3 - Hep B Twinrix risk 3-dose series) 08/07/2024 07/10/2024 HEPATITIS A VACCINE (2 of 2 - Risk 2-dose series) 01/07/2025 07/10/2024 INFLUENZA VACCINE (Season Ended) 2025 HEPATITIS C SCREENING Completed 12/21/2022 HIB VACCINE Aged Out No longer eligi ble based on patient's age to complete this topic HPV VACCINE Aged Out No longer eligi ble based on patient's age to complete this topic MENINGOCOCCAL (Group B) VACC INE SHARED DECISION-MAKING Aged Out No longer eligibl e based on patient's age to complete this topic MENINGOCOCCAL GROUPS A/C/Y/W VACCINE Aged Out No longer eligible b ased on patient's age to complete this topic Goals Goal Patient Goal Type Associated Problems Recent Progress Patient-Stated? Author Medication Management General On track( 024 12:30 PM CDT) Nella Nava, RN Note: Expected end date: ongoing Interventions: Take all medications as prescribed Let your doctor know right away about any changes in your medications Make sure to request a refill of your medication at least one week prior to your last dose Procedures Procedure Name Priority Date/Time Associated Diagnosis Comments HEPATITIS C AB W/RFLX TO HCV RNA QN PCR Routine 12/21/2022 12:22 PM CDT Cirrhosis of liver without ascites, unspecified hepatic cirrhosis type from Last 3 Months or Most Recently Relevant to Health Maintenance Results * HEPATITIS C AB W/RFLX TO HCV RNA QN PCR (12/21/2022 12:22 PM CDT) Hepatitis C Antibody NON-REACTI VE NON-REACT [facility] [employer] Comment: HCV antibody was non-reactive. There is no laboratory evidence of HCV infection. In most cases, no further action is required. However, if recent HCV exposure is suspected, a test for HCV RNA (test code 94604) is suggested. For additional information please refer to http://education.PWRF/faq/FMV09y0 (This link is being provided for informational/ educational purposes only.) Test Performed at: [facility] [id number] [place] [address] JAMES WHITTAKER MD Blood BLOOD SPECIMEN / Unknown 12/21/2022 12:22 PM CDT 12/21/2022 12:23 PM CDT Travis Burnett MD LAB - CHEMISTRY ORDERABLES Fi nal Result [facility] [id number] [place] [address] from Last 3 Months or Most Recently Relevant to Health Maintenance Insurance BC[employer] [place] [employer] MEDICARE ADV HMO & PPO Advance Directives * FULL RESUSCITATION (Latest Code Status on File) Date Activated Date Inactivated Comments 01/18/2012 8:12 AM 01/29/2012 12:07 PM Care Teams Land Economist Relationship Specialty Start Date End Date Ankush Wan Update Information PCP - General 10/21/22
--- OUTSIDE RECORDS SUMMARY | 2024-10-28 16:29 | XMS_ITS | Referral Summary ---
Author Organization [facility] Medical Office Building [address] Address [address] [place] [address] Care Team Providers Care Photonics Engineering Technologist Name Role Phone Ankush Wan MD Primary Care Provider [phone] Encounters Date Type Department Care Team Description 07/31/2024 6:51 AM TAB CUTTING MACHINE OPERATOR - 07/31/2024 11:59 PM TAB CUTTING MACHINE OPERATOR Hospital Encounter [facility] Neuro Interventional Radiology [address] [place] [address] Dewey Hodges MD Cerebral aneurysm Discharge Disposition: Discharge to home or self care from Last 3 Months Allergies Active Allergy Reactions Criticality Noted Date Comments Steven Inhibitors Anaphylaxis,Angioed anuj High 02/09/2010 Escitalopram Other (See comments) Low 10/04/2023 Hydrochlorothiazide Anaphylaxis High 12/27/2011 Hymenoptera Allergenic Extract Anaphylaxis,Swellin g High 02/03/2012 Lisinopril Other (See comments) Low 10/04/2023 Lisinopril-Hydrochlorothiaz velia Anaphylaxis High 01/14/2010 Venom-Honey Bee Anaphylaxis High 12/27/2011 Allergic to bee stings Medications albuterol HFA (PROVENTIL HFA,VENTOLIN HFA,PROAIR HFA) 90 mcg/actuation inhalerIndications :Bronchospasm Prevention Inhale 2 puffs every 4 (four) hours as needed for wheezing or shortness of breath Active furosemide (LASIX) 20 mg tabletIndications: hypertension Take 1 tablet (20 mg total) by mouth every morning Active gabapentin (NEURONTIN) 400 mg capsuleIndications :Neuropathic Pain Take 300 mg by mouth 3 (three) times a day Active levETIRAcetam (KEPPRA) 750 mg tabletIndications: seizure prevention Take 1 tablet (750 mg total) by mouth 2 (two) times a day Active multivitamin tabletIndications: Vitamin Deficiency Prevention Take 1 tablet by mouth senior instructor before breakfast Active pantoprazole DR (PROTONIX) 40 mg EC tabletIndications: Treatment of Non-Bleeding Gastric Disorder Take 1 tablet (40 mg total) by mouth every morning Active Xifaxan 550 mg tabletIndications: Hepatic Encephalopathy Take 1 tablet (550 mg total) by mouth 2 (two) times a day Active spironolactone (ALDACTONE) 50 mg tabletIndications: hypertension Take 1 tablet (50 mg total) by mouth with lunch Active traZODone (DESYREL) 150 mg tabletIndications: insomnia associated with depression Take 1 tablet (150 mg total) by mouth nightly at bedtime Active atorvastatin (LIPITOR) 20 mg tabletIndications: hyperlipidemia Take 1 tablet (20 mg total) by mouth nightly at bedtime 02/17/20 23 Active Spiriva Respimat 2.5 mcg/actuation inhalerIndications :Bronchospasm Prevention with COPD Inhale 2 puffs daily with dinner 07/13/19 24 Active propranoloL (INDERAL) 20 mg tabletIndications: hypertension Take 2 tablets (40 mg total) by mouth 2 (two) times a day 08/09/19 24 Active thiamine (VITAMIN B1) 100 mg tabletIndications: Thiamine Deficiency Take 1 tablet (100 mg total) by mouth senior instructor before breakfast Active B.animalis,bifid,i nfantis,long (PROBIOTIC 4X ORAL)Indications:G I Health Take 1 capsule by mouth with lunch Active acetaminophen 500 mg capsuleIndications :Fever,Pain Take 1 capsule (500 mg total) by mouth every 6 (six) hours as needed for pain 08/30/19 24 Active Additional Information Patient not taking.Reported on 05/23/2024 docusate sodium (COLACE) 100 mg capsuleIndications :constipation,Stoo l Softener Take 1 capsule (100 mg total) by mouth 2 (two) times a day 02/27/20 24 Active polyethylene glycol (MIRALAX) 17 gram packetIndications: constipation Take 1 packet (17 g total) by mouth daily 08/31/19 Active Additional Information Patient not taking.Reported on 05/23/2024 oxyCODONE (ROXICODONE) 5 mg immediate release tabletIndications: Pain Take 1 tablet (5 mg total) by mouth every 4 (four) hours as needed for pain 42 tablet 08/31/19 Active Additional Information Patient not taking.Reported on 05/23/2024 amLODIPine (NORVASC) 5 mg tablet Take 1 tablet (5 mg total) by mouth daily 30 tablet 2 09/01/19 Active Active Problems Problem Noted Date Diagnosed Date Disorder of bursae of shoulder region 10/13/2023 Degenerative joint disease of shoulder region Shoulder joint pain 10/13/2023 Aneurysm 08/29/2023 Acute meniscal tear, medial 02/24/2023 Osteoarthritis of left hip 02/24/2023 Cerebral aneurysm 01/25/2023 Epilepsy undetermined as to focal or generalized 01/25/2023 Benign prostatic hyperplasia without urinary obs truction 01/19/2023 Nocturia 01/19/2023 Prostatitis syndrome 01/19/2023 Urinary frequency 01/19/2023 Chondromalacia of both patellae 01/13/2023 Hepatic encephalopathy 12/17/2022 Arthralgia of both knees 11/03/2022 Bronchitis 07/28/2022 Chronic insomnia 07/28/2022 Chronic obstructive lung disease 07/28/2022 Cirrhosis of liver 07/28/2022 Gastroesophageal reflux disease without esophagi tis 07/28/2022 History of alcohol abuse 07/28/2022 Neuropathy 07/28/2022 Smoker 07/28/2022 Bilateral impacted cerumen 07/28/2022 Alcohol withdrawal syndrome 07/30/2014 Overview (04/07/2023): Admission 07/30/14-08/05/14: Has hx of EtOH abuse, anxiety, and depression, who presents with complaints of EtOH withdrawal. The patient states he has been drinking 2 pints of vodka for the past 5 days and his last drink was 0900 on morning of admission. 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 Furthermore, the patient admits prior to these 5 days, he had been sober for a year and has been to rehab 3 times. The patient notes he started drinking heavily again due to long-standing issues with his , whom he's been for 4 years. Per the ED MD, the patient was hospitalized in 2012 to the ICU for pancreatitis and EtOH withdrawal. During that admission, the patient had a psychotic break, escaped from the hospital and was found wandering the streets'. He was admitted to the transitional care unit. CIWA protocol followed; magnesium, thiamine, and folate supplemented; Became agitated/combative during this admission and was restrained and sedated. Weaned of pecedex starting 08/03/14 and was requiring minimal ativan by 08/05/14. Will be discharged home, patient has plans to start attending AA meetings and will soon move to [place] where he has a support system in place to help manage his alcohol addiction. Alkaline phosphatase elevation 07/30/2014 Elevated hemoglobin A1c 07/30/2014 Depression, major, recurrent 05/25/2013 Overview (04/07/2023): Admission 07/30/14-08/05/14: Evaluated by psychiatry during an inpatient stay for ETOH withdrawal. Diagnosed with Alcohol Dependence with intoxication and withdrawal and Depressive Disorder NOS. Increased Celexa to 40mg QD and continued trazodone to 50mg QD. Admission 07/30/14-08/05/14: Evaluated by psychiatry during an inpatient stay for ETOH withdrawal. Diagnosed with Alcohol Dependence with intoxication and withdrawal and Depressive Disorder NOS. Increased Celexa to 40mg QD and continued trazodone to 50mg QD. 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 Alcohol withdrawal seizure 12/27/2011 Overview (04/07/2023): Overview: Now off librium taper Alcohol abuse 09/14/2011 Overview (04/07/2023): Has been in rehab three times, last inpt rehab was completed on 06/03/2014-- remained sober for one year Abnormal LFTs 10/29/2005 Overview (04/07/2023): Minimally elevated alk phos. Told during last hospitalization that he passed a gall stone Minimally elevated alk phos. Told during last hospitalization that he passed a gall stone Asthma with status asthmaticus 06/25/2005 Hypertension 10/18/2003 Hyperlipidemia 07/19/2003 Immunizations Immunization Administration Dates Next Due DTaP 12/19/2006 Social History Tobacco Use Types Packs/Day Years Used Date Smoking Tobacco: Every Day Cigarettes Passive Smoke Exposure: Never Smokeless Tobacco: Never Tobacco Cessation:Ready to Q uit: Not Asked; Counseling Given: Yes AUDIT-C Answer Date Recorded Q1: How often do you have a drink containing alcohol? Never 10/13/2023 Q2: How many drinks containi ng alcohol do you have on a typical day when you are drinking? Patient does not drink Q3: How often do you have si x or more drinks on one occasion? Never 10/13/2023 Personal Safety Answer Date Recorded Have you ever been in or are you currently in a harmful physical or emotional relationship or is someone making you feel afraid or unsafe? Denies 07/31/2024 Sex and Gender Information Value Date Recorded Sex Assigned at Not on file Legal Sex Male 2:03 AM TAB CUTTING MACHINE OPERATOR Gender Identity Not on file Sexual Orientation Not on file Last Filed Vital Signs Vital Sign Reading Time Taken Comments Blood Pressure 123/63 07/31/2024 10:25 AM TAB CUTTING MACHINE OPERATOR Pulse 55 07/31/2024 10:25 AM TAB CUTTING MACHINE OPERATOR Temperature 36.2 C (97.1 F) 07/31/2024 7:17 AM TAB CUTTING MACHINE OPERATOR Respiratory Rate 14 07/31/2024 9:55 AM TAB CUTTING MACHINE OPERATOR Oxygen Saturation 95% 07/31/2024 10:25 AM TAB CUTTING MACHINE OPERATOR Inhaled Oxygen Concentration - - Weight 73.9 kg (163 lb) 07/31/2024 7:17 AM TAB CUTTING MACHINE OPERATOR Height 172.7 cm (5' 8 ) 07/31/2024 7:17 AM TAB CUTTING MACHINE OPERATOR Body Mass Index 24.78 07/31/2024 7:17 AM TAB CUTTING MACHINE OPERATOR Plan of Treatment Not on file Medical Devices Implanted Type Area Blow Torch Operator Device Identifier Shelf Expiration Date Model / Serial / Lot [employer] Starclose Se 6fr Clip Vascular Device Closure Nitinol Sterile 76773-38 - [id number] Implanted:Qty: 1 on 08/29/2023 at [facility] [employer] 09/01/2024 1467 9-01 / / [id number] Rudd Craniomaxillofacial Bone Gap Neuro Iii .4mm 2x2 Hole Low Profile Craniomaxillofacial [id number] - [id number] Implanted:Qty: 2 on 08/29/2023 by Dewey Hodges MD at [facility] Left: Cranial Nabila Craniomaxillofacial [id number] / / Nabila Craniomaxillofacial Leibinger Bone Gap 2 Gsp 90x90x.3mm Dynamic Midface Mesh Cranial [id number] - [id number] Implanted:Qty: 1 on 08/29/2023 by Dewey Hodges MD at [facility] Left: Cranial Rudd Craniomaxillofacial [id number] / / Nabila Craniomaxillofacial Bone Gap Neuro 3 1.5mm 4mm Self Drill Axial Stability Screw Bone Latex Free [id number] - [id number] Implanted:Qty: 21 on 08/29/2023 by Dewey Hodges MD at [facility] Left: Cranial Nabila Craniomaxillofacial [id number] / / Procedures Procedure Name Priority Date/Time Associated Diagnosis Comments ANGIO SELECTIVE INTERNAL CAROTID RIGHT Schedule Routine, Read Routine (OP Routine) 07/31/2024 9:35 AM TAB CUTTING MACHINE OPERATOR Cerebral aneurysm from Last 3 Months Results * IR Angio Selective Internal Carotid Right (07/31/2024 9:35 AM TAB CUTTING MACHINE OPERATOR) Anatomical Region Laterality Modality Neck Right Radio Fluoroscop y 08/01/2024 3:20 PM TAB CUTTING MACHINE OPERATOR Impressions 08/07/2024 8:48 AM TAB CUTTING MACHINE OPERATOR 1. 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 Good antegrade filling of the robust left posterior communicating artery. 2. No evidence of additional aneurysms, focal stenosis, or early draining vein. 3. Similar appearance of atherosclerotic plaque and stenosis of the bilateral carotid bifurcations as compared to prior angiogram on 04/26/2023. These results were discussed with patient after the conclusion of the procedure. Dictated by: Kieran Yanez M.D. The radiology attending physician has personally reviewed this study, and had reviewed and/or edited this written report and agrees with it. Electronically signed by: Dewey Hodges M.D. Narrative 08/07/2024 8:48 AM TAB CUTTING MACHINE OPERATOR DIAGNOSTIC CEREBRAL ANGIOGRAM CLINICAL INDICATION: Patient is a 64-year-old male with history of a nonruptured left posterior communicating artery aneurysm who underwent left craniotomy for clipping. He presents for one year follow up diagnostic cerebral angiogram. PROCEDURE: 1. Cerebral angiography: Left common carotid artery, right common carotid artery, right internal carotid artery, right vertebral artery injections 2. 3D reconstructions 3. Ultrasound-guided vascular access ATTENDING SURGEON: Dewey Hodges MD. He was present for the entire procedure. ASSISTING SURGEON(S): MD Ruddy Garber MD ANESTHESIA: Local in the right forearm with 1% Lidocaine. Conscious sedation with Versed and Fentanyl was given by the nurse under the supervision of the attending interventional neuroradiologist. Pre-, intra-, and post-conscious sedation monitoring records are available in the chart. Total monitored sedation time was 60 minutes. MEDICATIONS: Local anesthesia: 1% Lidocaine SQ Sedation and Analgesia: Versed IV, Fentanyl IV Radial artery cocktail: Verapamil (2.5 mg), Nitroglycerin (200 mcg), and Heparin (3000 units) MATERIALS: 21-gauge needle 5 Bel[place]ian Merit Prelude IDeal sheath 23cm and mini guidewire 5 Belarusian Montesinos 1 Allison catheter Terumo glidewire TR Band CONTRAST: Visipaque 270 150 mL TECHNIQUE: Prior to the procedure, the technical aspects of the procedure, as well as benefits, potential risks and alternate options, were explained to the patient. Specifically, the risks of cerebral infarction, hemorrhage, weakness, paralysis, sensory changes, vision decline/blindness, cranial nerve palsy, facial pain, anaphylaxis, renal failure, access site hematoma, arterial dissection, arterial pseudoaneurysm, arteriovenous fistula were discussed with the patient in person. Informed consent was obtained. After informed consent was obtained, the patient was brought to the angiography suite. Moderate sedation (intravenous fentanyl and midazolam) was administered under the direction of the attending physician with continuous monitoring by a trained nurse specialist independent of those performing the procedure. Total monitored sedation time was 60 minutes. The right forearm was prepped and draped in the usual fashion. Access to the vascular system was gained in the usual way by a single-wall puncture of the right radial artery at the wrist under ultrasound guidance. Ultrasound images demonstrated a patent vessel and were stored to PACS.. The 5 [place]ian Merit Prelude IDeal sheath 23cm was then introduced into the right radial artery over the mini guidewire. A cocktail of Verapamil (2.5 mg), Nitroglycerin (200 mcg), and Heparin (3000 units) was slowly injected into the right radial artery through the sheath over several minutes, with close monitoring of blood pressure. A Terumo Glidewire and 5 Bel[place]ian Montesinos 1 Allison catheter were advanced into the aortic arch under fluoroscopic visualization and the Montesinos catheter was formed over the aortic arch. Using fluoroscopic guidance, selective catheterization of the above mentioned vessels and digital angiograms were performed, centered over the head and neck with AP, lateral, and oblique views. 3D ROTATIONAL ANGIOGRAPHY OF THE LEFT COMMON CAROTID ARTERY : Rotational angiography was also performed from the guide catheter in the left common carotid artery for better delineation of the previously clipped posterior communicating artery aneurysm. Three-dimensional angiographic images were processed on an independent workstation, and volume-rendered three-dimensional images were produced and reviewed by the attending physician. The catheter was then removed. The sheath was removed. Patent hemostasis was achieved by placement of a TR band. There were no immediate complications related to the procedure. FINDINGS: RIGHT COMMON CAROTID ARTERY, CERVICAL: There is a calcified atherosclerotic plaque at the origin of the right internal carotid artery, with approximately 20% stenosis without flow limitation. There is also some irregularity at the anterior aspect of the right common carotid artery without significant stenosis. The bifurcation is at C2-C3 level. There is normal opacification of right cervical external carotid artery branches. RIGHT INTERNAL CAROTID ARTERY, CEREBRAL: There is no evidence of aneurysm, focal stenosis, or early draining vein. There is good cross flow across the anterior communicating artery with opacification of the left anterior cerebral artery. There is a large right posterior communicating artery. LEFT COMMON CAROTID ARTERY, CERVICAL: There is calcified atherosclerotic disease with an irregular plaque at the left common carotid bifurcation without significant stenosis with respect to the distal left ICA. There is a proximal left cervical ICA loop. The bifurcation occurs at the level of C2-C3. There is normal opacification of left cervical external carotid artery branches. LEFT COMMON CAROTID ARTERY, CEREBRAL: There is no evidence of additional aneurysms, focal stenosis, or early draining vein. There is complete occlusion of the previously clipped left posterior commuting artery aneurysm. There is antegrade flow through the robust left posterior communicating artery supplying the left posterior cerebral artery distribution as well as antegrade flow through the anterior choroidal arteries. 3D ROTATIONAL ANGIOGRAPHY OF THE LEFT COMMON CAROTID ARTERY: 3D Rotational angiography with volume-rendered three-dimensional reconstruction on an independent workstation demonstrated no residual filling of left posterior commuting artery aneurysm status post clipping with persistent filling of the robust left posterior communicating artery. RIGHT VERTEBRAL ARTERY, CEREBRAL: There is no evidence of aneurysm, focal stenosis, or early draining vein. There was good contrast reflux down the left vertebral artery. Both posterior inferior cerebellar arteries demonstrate normal takeoffs from the distal ipsilateral vertebral arteries. There was no filling of the bilateral P1 segments consistent with robust posterior communicating arteries bilaterally. COMPLICATIONS: There were no immediate complications. Procedure Note Dewey Hodges MD - 08/07/2024 DIAGNOSTIC CEREBRAL ANGIOGRAM CLINICAL INDICATION: Patient is a 64-year-old male with history of a nonruptured left posterior communicating artery aneurysm who underwent left craniotomy for clipping. He presents for one year follow up diagnostic cerebral angiogram. PROCEDURE: 1. Cerebral angiography: Left common carotid artery, right common carotid artery, right internal carotid artery, right vertebral artery injections 2. 3D reconstructions 3. Ultrasound-guided vascular access ATTENDING SURGEON: Dewey Hodges MD. He was present for the entire procedure. ASSISTING SURGEON(S): MD Ruddy Garber MD ANESTHESIA: Local in the right forearm with 1% Lidocaine. Conscious sedation with Versed and Fentanyl was given by the nurse under the supervision of the attending interventional neuroradiologist. Pre-, intra-, and post-conscious sedation monitoring records are available in the chart. Total monitored sedation time was 60 minutes. MEDICATIONS: Local anesthesia: 1% Lidocaine SQ Sedation and Analgesia: Versed IV, Fentanyl IV Radial artery cocktail: Verapamil (2.5 mg), Nitroglycerin (200 mcg), and Heparin (3000 units) MATERIALS: 21-gauge needle 5 Bel[place]ian Merit Prelude IDeal sheath 23cm and mini guidewire 5 Belarusian Monetsinos 1 Allison catheter Terumo glidewire TR Band CONTRAST: Visipaque 270 150 mL TECHNIQUE: Prior to the procedure, the technical aspects of the procedure, as well as benefits, potential risks and alternate options, were explained to the patient. Specifically, the risks of cerebral infarction, hemorrhage, weakness, paralysis, sensory changes, vision decline/blindness, cranial nerve palsy, facial pain, anaphylaxis, renal failure, access site hematoma, arterial dissection, arterial pseudoaneurysm, arteriovenous fistula were discussed with the patient in person. Informed consent was obtained. After informed consent was obtained, the patient was brought to the angiography suite. Moderate sedation (intravenous fentanyl and midazolam) was administered under the direction of the attending physician with continuous monitoring by a trained nurse specialist independent of those performing the procedure. Total monitored sedation time was 60 minutes. The right forearm was prepped and draped in the usual fashion. Access to the vascular system was gained in the usual way by a single-wall puncture of the right radial artery at the wrist under ultrasound guidance. Ultrasound images demonstrated a patent vessel and were stored to PACS.. The 5 Bel[place]ian Merit Prelude IDeal sheath 23cm was then introduced into the right radial artery over the mini guidewire. A cocktail of Verapamil (2.5 mg), Nitroglycerin (200 mcg), and Heparin (3000 units) was slowly injected into the right radial artery through the sheath over several minutes, with close monitoring of blood pressure. A Terumo Glidewire and 5 Bel[place]ian Montesinos 1 Allison catheter were advanced into the aortic arch under fluoroscopic visualization and the Montesinos catheter was formed over the aortic arch. Using fluoroscopic guidance, selective catheterization of the above mentioned vessels and digital angiograms were performed, centered over the head and neck with AP, lateral, and oblique views. 3D ROTATIONAL ANGIOGRAPHY OF THE LEFT COMMON CAROTID ARTERY : Rotational angiography was also performed from the guide catheter in the left common carotid artery for better delineation of the previously clipped posterior communicating artery aneurysm. Three-dimensional angiographic images were processed on an independent workstation, and volume-rendered three-dimensional images were produced and reviewed by the attending physician. The catheter was then removed. The sheath was removed. Patent hemostasis was achieved by placement of a TR band. There were no immediate complications related to the procedure. FINDINGS: RIGHT COMMON CAROTID ARTERY, CERVICAL: There is a calcified atherosclerotic plaque at the origin of the right internal carotid artery, with approximately 20% stenosis without flow limitation. There is also some irregularity at the anterior aspect of the right common carotid artery without significant stenosis. The bifurcation is at C2-C3 level. There is normal opacification of right cervical external carotid artery branches. RIGHT INTERNAL CAROTID ARTERY, CEREBRAL: There is no evidence of aneurysm, focal stenosis, or early draining vein. There is good cross flow across the anterior communicating artery with opacification of the left anterior cerebral artery. There is a large right posterior communicating artery. LEFT COMMON CAROTID ARTERY, CERVICAL: There is calcified atherosclerotic disease with an irregular plaque at the left common carotid bifurcation without significant stenosis with respect to the distal left ICA. There is a proximal left cervical ICA loop. The bifurcation occurs at the level of C2-C3. There is normal opacification of left cervical external carotid artery branches. LEFT COMMON CAROTID ARTERY, CEREBRAL: There is no evidence of additional aneurysms, focal stenosis, or early draining vein. There is complete occlusion of the previously clipped left posterior commuting artery aneurysm. There is antegrade flow through the robust left posterior communicating artery supplying the left posterior cerebral artery distribution as well as antegrade flow through the anterior choroidal arteries. 3D ROTATIONAL ANGIOGRAPHY OF THE LEFT COMMON CAROTID ARTERY: 3D Rotational angiography with volume-rendered three-dimensional reconstruction on an independent workstation demonstrated no residual filling of left posterior commuting artery aneurysm status post clipping with persistent filling of the robust left posterior communicating artery. RIGHT VERTEBRAL ARTERY, CEREBRAL: There is no evidence of aneurysm, focal stenosis, or early draining vein. There was good contrast reflux down the left vertebral artery. Both posterior inferior cerebellar arteries demonstrate normal takeoffs from the distal ipsilateral vertebral arteries. There was no filling of the bilateral P1 segments consistent with robust posterior communicating arteries bilaterally. COMPLICATIONS: There were no immediate complications. IMPRESSION: 1. 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 Good antegrade filling of the robust left posterior communicating artery. 2. No evidence of additional aneurysms, focal stenosis, or early draining vein. 3. Similar appearance of atherosclerotic plaque and stenosis of the bilateral carotid bifurcations as compared to prior angiogram on 04/26/2023. These results were discussed with patient after the conclusion of the procedure. Dictated by: Kieran Yanez M.D. The radiology attending physician has personally reviewed this study, and had reviewed and/or edited this written report and agrees with it. Electronically signed by: Dewey Hodges M.D. Dewey Hodges MD IMG IR PROCEDURES Ginette l Result from Last 3 Months Insurance [employer] MEDICARE PPO [employer] MEDICARE PPO HU[employer] CHOICE MEDICARE PPO Advance Directives For more information, please contact: [phone] * Full Code (Latest Code Status on File) Date Activated Date Inactivated Comments 08/29/2023 1:37 PM 08/31/2023 8:31 PM Care Teams Photonics Engineering Technologist Relationship Specialty Start Date End Date Ankush Wan MD [address] [facility] [place] [address] PCP - General Family Medicine 10/15/22
--- OUTSIDE RECORDS SUMMARY | 2024-10-28 16:29 | XMS_ITS | Clinical Summary ---
Author Organization [facility] Medical Office Building [address] Address [address] [place] [address] Care Team Providers Care Channeler Outsole Name Role Phone Ankush Wan MD Primary Care Provider Allergies Active Allergy Reactions Criticality Noted Date [...] Deficiency Prevention Take 1 tablet by mouth can worker before breakfast Active pantoprazole DR (PROTONIX) 40 [...] 1 tablet (100 mg total) by mouth can worker before breakfast Active B.animalis,bifid,i nfantis,long (PROBIOTIC 4X ORAL)Indications:G I Health Take 1 capsule by mouth with lunch Active acetaminophen 500 mg capsuleIndications :Fever,Pain Take 1 capsule (500 mg total) by mouth every 6 (six) hours as needed for pain 08/30/19 Active Additional Information Patient not taking.Reported on 05/23/2024 docusate sodium (COLACE) 100 mg capsuleIndications :constipation,Stoo l Softener Take 1 capsule (100 mg total) by mouth 2 (two) times a day 08/30/19 24 Active polyethylene glycol (MIRALAX) 17 gram packetIndications: constipation Take 1 packet (17 g total) by mouth daily 08/31/19 24 Active Additional Information Patient not taking.Reported [...] withdrawal seizures but denies any seizure activity 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 Furthermore, the patient admits prior to these [...] AA meetings and will soon move to [place] where he has a support system in [...] status asthmaticus 06/25/2005 Hypertension 10/18/2003 Hyperlipidemia 07/19/2003 Encounters Date Type Department Care Team Description 07/31/2024 6:51 AM MUD ANALYSIS OPERATOR - 07/31/2024 11:59 PM MUD ANALYSIS OPERATOR Hospital Encounter [facility] Neuro Interventional Radiology [address] [place] [address] Dewey Hodges MD Cerebral aneurysm Discharge Disposition: Discharge to home or self care from Last 3 Months Immunizations Immunization Administration Dates Next Due DTaP 12/19/2006 Surgical History Surgery Date Site/Laterality Comments KNEE SURGERY Left HIP SURGERY Right BACK SURGERY HERNIA REPAIR ANGIO SELECTIVE INTERNAL CAROTID LEFT 04/26/2023 Lef t ROTATOR CUFF REPAIR Bilateral ANGIO SELECTIVE INTERNAL CAROTID LEFT 08/29/2023 Lef t ANGIO SELECTIVE INTERNAL CAROTID RIGHT 07/31/2024 Ri ght Medical History Medical History Date Comments Alcoholism (HCC) Aneurysm Anxiety Liver disease Substance abuse (HCC) Chronic bronchitis (HCC) Cirrhosis (HCC) Family History Medical History Relation Name Comments Hypertension Father Heart disease Paternal Grandmother Hypertension Paternal Grandmother Stroke Paternal Grandmother Relation Name Status Comments Father Paternal Grandmother Social History Tobacco Use Types Packs/Day Years [...] on file Legal Sex Male 2:03 AM MUD ANALYSIS OPERATOR Gender Identity Not on file Sexual Orientation Not on file Obstetrics History Last Filed Vital Signs Vital Sign Reading Time Taken Comments Blood Pressure 123/63 07/31/2024 10:25 AM MUD ANALYSIS OPERATOR Pulse 55 07/31/2024 10:25 AM MUD ANALYSIS OPERATOR Temperature 36.2 C (97.1 F) 07/31/2024 7:17 AM MUD ANALYSIS OPERATOR Respiratory Rate 14 07/31/2024 9:55 AM MUD ANALYSIS OPERATOR Oxygen Saturation 95% 07/31/2024 10:25 AM MUD ANALYSIS OPERATOR Inhaled Oxygen Concentration - - Weight 73.9 kg (163 lb) 07/31/2024 7:17 AM MUD ANALYSIS OPERATOR Height 172.7 cm (5' 8 ) 07/31/2024 7:17 AM MUD ANALYSIS OPERATOR Body Mass Index 24.78 07/31/2024 7:17 AM MUD ANALYSIS OPERATOR Plan of Treatment Health Maintenance Due Date Last Done Comments Colon Cancer Screening-Colonoscopy 1962 Depression Screening 1962 Hepatitis C Screening 1962 Prostate Cancer Screening-PSA 1962 Regular Well Visit/Exam 18-64 1980 Pneumococcal vaccine <65 (1 of 2 - PCV) 1981 Zoster Vaccine (1 of 2) 2012 DTaP/Tdap/Td Vaccine (2 - Tdap) 12/19/2016 7 Influenza Vaccine (Season Ended) 2025 Medical Devices Implanted Type Area Behavior Management Specialist Device Identifier Shelf Expiration Date Model / Serial / Lot [employer] Starclose Se 6fr Clip Vascular Device Closure Nitinol Sterile 47330-99 - [id number] Implanted:Qty: 1 on 08/29/2023 at [facility] [employer] 09/01/2024 1467 [id number] / / [id number] [employer] Craniomaxill[employer] Neuro Iii .4mm 2x2 Hole Low Profile Craniomaxillofacial [id number] - [id number] Implanted:Qty: 2 on 08/29/2023 by Dewey Hodges MD at [facility] Left: Cranial Onia Craniomaxillofacial [id number] / / Onia Craniomaxillofacial [employer] 2 Gsp 90x90x.3mm Dynamic Midface Mesh Cranial [id number] - [id number] Implanted:Qty: 1 on 08/29/2023 by Dewey Hodges MD at [facility] Left: Cranial Onia Craniomaxillofacial [id number] / / Onia Craniomaxillofacial Energy Neuro 3 1.5mm 4mm Self Drill Axial Stability Screw Bone Latex Free [id number] - [id number] Implanted:Qty: 21 on 08/29/2023 by Dewey Hodges MD at [facility] Left: Cranial Onia Craniomaxillofacial [id number] / / Procedures Procedure Name Priority Date/Time Associated Diagnosis Comments ANGIO SELECTIVE INTERNAL CAROTID RIGHT Schedule Routine, Read Routine (OP Routine) 07/31/2024 9:35 AM MUD ANALYSIS OPERATOR Cerebral aneurysm from Last 3 Months Results * IR Angio Selective Internal Carotid Right (07/31/2024 9:35 AM MUD ANALYSIS OPERATOR) Anatomical Region Laterality Modality Neck Right Radio Fluoroscop y 08/01/2024 3:20 PM MUD ANALYSIS OPERATOR Impressions 08/07/2024 8:48 AM MUD ANALYSIS OPERATOR 1. Complete occlusion of the previously [...] Dewey Hodges M.D. Narrative 08/07/2024 8:48 AM MUD ANALYSIS OPERATOR DIAGNOSTIC CEREBRAL ANGIOGRAM CLINICAL INDICATION: Patient [...] Heparin (3000 units) MATERIALS: 21-gauge needle 5 New Zealander Merit Prelude IDeal sheath 23cm and mini guidewire 5 New Zealander Montesinos 1 Claunch catheter Terumo glidewire TR Band CONTRAST: Visipaque [...] and were stored to PACS.. The 5 New Zealander Merit Prelude IDeal sheath 23cm was then introduced into the right radial artery over the mini guidewire. A cocktail of Verapamil (2.5 mg), Nitroglycerin (200 mcg), and Heparin (3000 units) was slowly injected into the right radial artery through the sheath over several minutes, with close monitoring of blood pressure. A Terumo Glidewire and 5 New Zealander Montesinos 1 Claunch catheter were advanced into the aortic arch [...] Heparin (3000 units) MATERIALS: 21-gauge needle 5 New Zealander Merit Prelude IDeal sheath 23cm and mini guidewire 5 New Zealander Montesinos 1 Claunch catheter Terumo glidewire TR Band CONTRAST: Visipaque [...] and were stored to PACS.. The 5 New Zealander Merit Prelude IDeal sheath 23cm was then introduced into the right radial artery over the mini guidewire. A cocktail of Verapamil (2.5 mg), Nitroglycerin (200 mcg), and Heparin (3000 units) was slowly injected into the right radial artery through the sheath over several minutes, with close monitoring of blood pressure. A Terumo Glidewire and 5 New Zealander Montesinos 1 Claunch catheter were advanced into the aortic arch [...] l Result from Last 3 Months Insurance [employer] CHOICE MEDICARE PPO HU[employer] CHOICE MEDICARE PPO HU[employer] CHOICE MEDICARE PPO Member Subscriber Plan / Payer (Ef fective 2022-) Name:Jhony Gary Relation to Subscriber:Self Name:Jhony Gary Payer ID:[id number] (NAIC) Type:MEDICARE RISK OTHER Address: [place] [id number] Advance Directives For more information, please contact: [phone] * Full Code (Latest Code Status on File) Date Activated Date Inactivated Comments 08/29/2023 1:37 PM 08/31/2023 8:31 PM Care Teams Channeler Outsole Relationship Specialty Start Date End Date Ankush Wan MD [address] [facility] [place] [address] PCP - General Family Medicine 10/15/22
--- NOTE | 2024-10-28 17:47 | ED.GENADULT ---
HPI - General Adult General Chief complaint: Alcohol <Nicolas Ho MD - Last Filed: 10/29/24 21:23> Stated complaint: alco <Nicolas Ho MD - Last Filed: 10/29/24 21:23> Time Seen by Provider: 10/28/24 16:18 <Nicolas Ho MD - Last Filed: 10/29/24 21:23> History of Present Illness HPI narrative: 64-year-old male presents To theemergency department for evaluation after being intoxicated making suicidal statements. Patient states that he had been drinking and did get into an argument with his ex-. Patient did make suicidal statements. Upon arrival emergency department patient states he is not suicidal. <Nicolas Ho MD - Last Filed: 10/29/24 21:23> Related Data Home medications: Home Medications ?Medication ?Instructions ?Recorded ?Confirmed ?Last Taken ?Type albuterol sulfate 90 mcg/actuation 2 puff inhalation Q2-6H 07/26/23 04/19/24 Unknown History aerosol inhaler atorvastatin 20 mg tablet 40 mg PO DAILY 07/26/23 04/19/24 Unknown History furosemide 20 mg tablet 20 mg PO DAILY 07/26/23 04/19/24 Unknown History gabapentin 400 mg capsule 400 mg PO DAILY 07/26/23 04/19/24 Unknown History levetiracetam 750 mg tablet 750 mg PO DAILY 07/26/23 04/19/24 Unknown History mupirocin 2 % topical ointment 1 applic topical DAILY 07/26/23 04/19/24 Unknown History rifaximin 550 mg tablet (Xifaxan) 550 mg PO DAILY 07/26/23 04/19/24 Unknown History tiotropium bromide 2.5 2 puff inhalation DAILY 07/26/23 04/19/24 Unknown History mcg/actuation mist for inhalation (Spiriva Respimat) trazodone 150 mg tablet 100 mg PO QHS 07/26/23 04/19/24 Unknown History <Nicolas Ho MD - Last Filed: 10/29/24 21:23> Allergies/adverse reactions: Allergies Allergy/AdvReac Type Severity Reaction Status Date / Time hydrochlorothiazide Allergy Mild Unknown Verified 04/19/24 13:16 lisinopril Allergy Mild Unknown Verified 04/19/24 13:16 Bumble Bee Allergy Mild Unknown Uncoded 04/19/24 13:16 <Nicolas Ho MD - Last Filed: 10/29/24 21:23> Review of Systems Review of Systems: All systems reviewed & are unremarkable except as noted in HPI and below <Nicolas Ho MD - Last Filed: 10/29/24 21:23> PMFSH Surgical History Surgical History: Surgical History H/O right knee surgery H/O rotator cuff surgery right and left H/O Spinal surgery History of hernia surgery History of total right hip arthroplasty <Nicolas Ho MD - Last Filed: 10/29/24 21:23> Family History Family History: Family History Unknown Asthma Hypertension Depression Heart disease Hyperlipidemia <Nicolas Ho MD - Last Filed: 10/29/24 21:23> Social History Social History: Social History Smoking status: Current every day smoker Tobacco type: cigarettes Alcohol intake: never Substance use type: does not use Living arrangements: with family Occupation/Education: other Additional occupation/education comments: disabled Gender identity (if verbalized by the patient): Male <Nicolas Ho MD - Last Filed: 10/29/24 21:23> Exam Narrative: APPEARANCE: Well appearing, no pain, no distress, well-nourished. HEAD: normocephalic, atraumatic. EYES: PERRLA/EOMI, conjunctivae clear. NOSE: Normal no drainage EARS:TMS clear with good light reflex. THROAT: Pharynx clear, no exudate. NECK: Supple. No adenopathy, no masses. RESPIRATORY: Airway patent, respirations nonlabored. Clear to auscultation bilaterally, no rales, rhonchi, wheezing. CARDIOVASCULAR: Regular rate and rhythm without murmurs rubs or gallops. ABDOMINAL: Soft, nontender, nondistended, normal bowel sounds MUSCULOSKELETAL: Moves all extremities. Strength/ROM intact, No edema, No calf tenderness. NEURO: Alert. Cranial nerves II through XII intact. Good gait. Good coordination SKIN: Warm, dry. Normal Color PSYCHIATRIC: Tearful affect <Nicolas Ho MD - Last Filed: 10/29/24 21:23> Course Course Emergency Course: 19:00 (Robert GREGORY) - This patient was signed out to me by previous ED physician, Dr. Ho pending sober re-evaluation. 04:00 - Repeat serum alcohol 118. Patient was positive for canal nodes but drug screen was otherwise negative. Salicylates and acetaminophen negative. Urinalysis shows ketones but is otherwise not concerning for urinary tract infection. Chemistries demonstrate mildly decreased TSH of 0.428 and anion gap 34. I suspect this is related to alcoholic ketoacidosis. CBC unremarkable. The patient now denies suicidal or homicidal ideations. Will discharge with recommendation for primary care follow-up. <Vikram Jones MD - Last Filed: 10/29/24 04:04> Vital Signs Vital signs: Vital Signs Temperature 98.0 F 10/28/24 16:16 Pulse Rate 106 H 10/28/24 16:16 Respiratory Rate 12 10/28/24 16:16 Blood Pressure 178/96 H 10/28/24 16:16 Pulse Oximetry 93 10/28/24 16:16 Oxygen Delivery Room Air 10/28/24 16:16 Temperature 98.0 F 10/28/24 16:16 Pulse Rate 93 10/29/24 02:45 Respiratory Rate 18 10/29/24 02:45 Blood Pressure 243/87 H 10/29/24 02:15 Pulse Oximetry 98 10/29/24 02:15 Oxygen Delivery Room Air 10/28/24 16:16 <Nicolas Ho MD - Last Filed: 10/29/24 21:23> Vital Signs Temperature 98.0 F 10/28/24 16:16 Pulse Rate 106 H 10/28/24 16:16 Respiratory Rate 12 10/28/24 16:16 Blood Pressure 178/96 H 10/28/24 16:16 Pulse Oximetry 93 10/28/24 16:16 Oxygen Delivery Room Air 10/28/24 16:16 Temperature 98.0 F 10/28/24 16:16 Pulse Rate 93 10/29/24 02:45 Respiratory Rate 18 10/29/24 02:45 Blood Pressure 243/87 H 10/29/24 02:15 Pulse Oximetry 98 10/29/24 02:15 Oxygen Delivery Room Air 10/28/24 16:16 <Vikram Jones MD - Last Filed: 10/29/24 04:04> Medical Decision Making MDM Narrative Medical decision making narrative: 64-year-old male presents to the emergency department for evaluation for evaluation after making suicidal statements. Patient is intoxicated with a blood alcohol of 330 at 17:45. At time of sign-out patient will need to have a blood alcohol level within the limit prior to crisis evaluation. <Nicolas Ho MD - Last Filed: 10/29/24 21:23> Vital Signs Vital Signs: Vital Signs Temperature 98.0 F 10/28/24 16:16 Pulse Rate 106 H 10/28/24 16:16 Respiratory Rate 12 10/28/24 16:16 Blood Pressure 178/96 H 10/28/24 16:16 Pulse Oximetry 93 10/28/24 16:16 Oxygen Delivery Room Air 10/28/24 16:16 Temperature 98.0 F 10/28/24 16:16 Pulse Rate 93 10/29/24 02:45 Respiratory Rate 18 10/29/24 02:45 Blood Pressure 243/87 H 10/29/24 02:15 Pulse Oximetry 98 10/29/24 02:15 Oxygen Delivery Room Air 10/28/24 16:16 <Nicolas Ho MD - Last Filed: 10/29/24 21:23> Vital Signs Temperature 98.0 F 10/28/24 16:16 Pulse Rate 106 H 10/28/24 16:16 Respiratory Rate 12 10/28/24 16:16 Blood Pressure 178/96 H 10/28/24 16:16 Pulse Oximetry 93 10/28/24 16:16 Oxygen Delivery Room Air 10/28/24 16:16 Temperature 98.0 F 10/28/24 16:16 Pulse Rate 93 10/29/24 02:45 Respiratory Rate 18 10/29/24 02:45 Blood Pressure 243/87 H 10/29/24 02:15 Pulse Oximetry 98 10/29/24 02:15 Oxygen Delivery Room Air 10/28/24 16:16 <Vikram Jones MD - Last Filed: 10/29/24 04:04> Lab Data Result diagrams: 10/28/24 17:41 10/28/24 17:41 <Nicolas Ho MD - Last Filed: 10/29/24 21:23> Labs: Lab Results 10/28/24 10/28/24 10/29/24 Range/Units 17:41 18:34 02:11 WBC 8.6 (4.5-10.0) K/mm3 RBC 4.88 (4.6-6.20) M/mm3 Hgb 16.6 (14.0-18.0) g/dL Hct 50.4 (42.0-52.0) % MCV 103.3 H (80-100) fl MCH 34.0 (26-34) pg MCHC 32.9 (32-36) g/dl RDW 13.9 (11.5-14.5) % Plt Count 244 (150-375) k/mm3 MPV 10.3 (7.4-10.4) fl Immature Gran % (Auto) 0.6 H (0-0.5) % Neut % (Auto) 68.0 (45.5-73.1) % Lymph % (Auto) 20.2 (18.3-44.2) % [place] % (Auto) 9.9 H (2.6-8.5) % Eos % (Auto) 0.0 (0-4.4) % Baso % (Auto) 1.3 H (0.2-1.2) % Lymph # (Auto) 1.73 (0.9-3.2) K/mm3 [place] # (Auto) 0.9 H (0.1-0.6) K/mm3 Eos # (Auto) 0.0 (0-0.3) K/mm3 Baso # (Auto) 0.1 (0.0-0.1) K/mm3 Abs Immat Gran (auto) 0.05 H (0.00-0.031) K/mm3 Absolute Neuts (auto) 5.8 (1.3-6.7) K/mm3 Absolute Nucleated RBC 0.000 (0.0-0.012) K/mm3 Nucleated RBC % 0.0 (0.0-0.2) % Sodium 148 H (137-145) mmol/L Potassium 4.0 (3.4-5.0) mmol/L Chloride 102 (98-107) mmol/L Carbon Dioxide 12 L (22-30) mmol/L Anion Gap 34 H (4-12) mmol/L BUN 14 (9-20) mg/dL Creatinine 1.00 (0.7-1.3) mg/dL Estim Creat Clear Calc 65 ml/min Estimated GFR > 60 (59 - ) Glucose 100 (65-110) mg/dL Calcium 9.1 (8.4-10.2) mg/dL Total Bilirubin 1.3 (0.2-1.3) mg/dL AST 81 H (17-59) U/L ALT 39 (6-50) U/L Alkaline Phosphatase 131 H (38-126) U/L Total Protein 8.0 (6.3-8.2) g/dL Albumin 5.0 (3.5-5.1) g/dL TSH (Reflex) 0.428 L (0.465-4.68) uIU/mL Free T4 1.25 (0.78-2.19) ng/dL Total T3 0.98 (0.97-1.69) NG/ML Urine Color Dark yellow (Yellow) Urine Appearance Clear (Clear) Urine pH 5.0 (5.0-9.0) Ur Specific [place] 1.023 (1.001-1.035) Urine Protein 3+ H (Negative) mg/dL Urine Glucose (UA) Negative (Negative) mg/dL Urine Ketones 3+ H (Negative) mg/dL Ur Blood (Man) 1+ H (Negative) Urine Nitrate Negative (Negative) Urine Bilirubin Negative (Negative) Urine Urobilinogen 1.0 (<2.0) mg/dL Add Ur Microanalysis Reviewed Leukocyte Esterase Rfl Negative (Negative) BRENDA/UL Urine RBC 0-2 (0-2) /hpf Urine WBC 0-5 (0-3) /hpf Ur Squamous Epith Cells Occasional (Few) /hpf Urine Bacteria None seen /hpf Urine Casts >20 Hyaline Casts Present (None) /lpf Salicylates < 1.0 L (2-20) mg/dL Urine Opiates Screen Negative (Negative) Urine Methadone Screen Negative (Negative) Acetaminophen < 10 L (10-30) ug/mL Ur Barbiturates Screen Negative (Negative) Ur Phencyclidine Scrn Negative (Negative) Ur Amphetamine Screen Negative (Negative) U Benzodiazepines Scrn Negative (Negative) Urine Cocaine Screen Negative (Negative) U Cannabinoids Screen Positive A (Negative) Ethyl Alcohol 330 H* 118 (<10) mg/dL <Nicolas Ho MD - Last Filed: 10/29/24 21:23> Lab Results 10/28/24 10/28/24 10/29/24 Range/Units 17:41 18:34 02:11 WBC 8.6 (4.5-10.0) K/mm3 RBC 4.88 (4.6-6.20) M/mm3 Hgb 16.6 (14.0-18.0) g/dL Hct 50.4 (42.0-52.0) % MCV 103.3 H (80-100) fl MCH 34.0 (26-34) pg MCHC 32.9 (32-36) g/dl RDW 13.9 (11.5-14.5) % Plt Count 244 (150-375) k/mm3 MPV 10.3 (7.4-10.4) fl Immature Gran % (Auto) 0.6 H (0-0.5) % Neut % (Auto) 68.0 (45.5-73.1) % Lymph % (Auto) 20.2 (18.3-44.2) % [place] % (Auto) 9.9 H (2.6-8.5) % Eos % (Auto) 0.0 (0-4.4) % Baso % (Auto) 1.3 H (0.2-1.2) % Lymph # (Auto) 1.73 (0.9-3.2) K/mm3 [place] # (Auto) 0.9 H (0.1-0.6) K/mm3 Eos # (Auto) 0.0 (0-0.3) K/mm3 Baso # (Auto) 0.1 (0.0-0.1) K/mm3 Abs Immat Gran (auto) 0.05 H (0.00-0.031) K/mm3 Absolute Neuts (auto) 5.8 (1.3-6.7) K/mm3 Absolute Nucleated RBC 0.000 (0.0-0.012) K/mm3 Nucleated RBC % 0.0 (0.0-0.2) % Sodium 148 H (137-145) mmol/L Potassium 4.0 (3.4-5.0) mmol/L Chloride 102 (98-107) mmol/L Carbon Dioxide 12 L (22-30) mmol/L Anion Gap 34 H (4-12) mmol/L BUN 14 (9-20) mg/dL Creatinine 1.00 (0.7-1.3) mg/dL Estim Creat Clear Calc 65 ml/min Estimated GFR > 60 (59 - ) Glucose 100 (65-110) mg/dL Calcium 9.1 (8.4-10.2) mg/dL Total Bilirubin 1.3 (0.2-1.3) mg/dL AST 81 H (17-59) U/L ALT 39 (6-50) U/L Alkaline Phosphatase 131 H (38-126) U/L Total Protein 8.0 (6.3-8.2) g/dL Albumin 5.0 (3.5-5.1) g/dL TSH (Reflex) 0.428 L (0.465-4.68) uIU/mL Free T4 1.25 (0.78-2.19) ng/dL Total T3 0.98 (0.97-1.69) NG/ML Urine Color Dark yellow (Yellow) Urine Appearance Clear (Clear) Urine pH 5.0 (5.0-9.0) Ur Specific [place] 1.023 (1.001-1.035) Urine Protein 3+ H (Negative) mg/dL Urine Glucose (UA) Negative (Negative) mg/dL Urine Ketones 3+ H (Negative) mg/dL Ur Blood (Man) 1+ H (Negative) Urine Nitrate Negative (Negative) Urine Bilirubin Negative (Negative) Urine Urobilinogen 1.0 (<2.0) mg/dL Add Ur Microanalysis Reviewed Leukocyte Esterase Rfl Negative (Negative) BRENDA/UL Urine RBC 0-2 (0-2) /hpf Urine WBC 0-5 (0-3) /hpf Ur Squamous Epith Cells Occasional (Few) /hpf Urine Bacteria None seen /hpf Urine Casts >20 Hyaline Casts Present (None) /lpf Salicylates < 1.0 L (2-20) mg/dL Urine Opiates Screen Negative (Negative) Urine Methadone Screen Negative (Negative) Acetaminophen < 10 L (10-30) ug/mL Ur Barbiturates Screen Negative (Negative) Ur Phencyclidine Scrn Negative (Negative) Ur Amphetamine Screen Negative (Negative) U Benzodiazepines Scrn Negative (Negative) Urine Cocaine Screen Negative (Negative) U Cannabinoids Screen Positive A (Negative) Ethyl Alcohol 330 H* 118 (<10) mg/dL <Vikram Jones MD - Last Filed: 10/29/24 04:04> Discharge Plan Discharge Clinical Impression: Alcoholic intoxication, Alcohol-induced mood disorder <Nicolas Ho MD - Last Filed: 10/29/24 21:23> Patient Disposition: Home <Nicolas Ho MD - Last Filed: 10/29/24 21:23> Condition: Stable <Nicolas Ho MD - Last Filed: 10/29/24 21:23> Instructions: Antibiotic Form, Abuse of Alcohol (ED) <Nicolas Ho MD - Last Filed: 10/29/24 21:23> Additional Instructions: You were seen in the emergency department. Your labs are consistent with alcohol intoxication. Your given nausea medications. I recommend following up with the primary care doctor and avoiding future alcohol or drug use. If you develop seizures, chest pain, shortness of breath, loss of consciousness, thoughts of hurting yourself or killing yourself, or if you have other emergent concerns for life, limb, or eyesight, return to the emergency department. <Nicolas Ho MD - Last Filed: 10/29/24 21:23> Patient Language: Macedonian <Nicolas Ho MD - Last Filed: 10/29/24 21:23> Prescriptions: No Action atorvastatin 20 mg tablet 40 mg PO DAILY gabapentin 400 mg capsule 400 mg PO DAILY trazodone 150 mg tablet 100 mg PO QHS levetiracetam 750 mg tablet 750 mg PO DAILY mupirocin 2 % ointment 1 applic topical DAILY furosemide 20 mg tablet 20 mg PO DAILY albuterol sulfate 90 mcg/actuation HFA aerosol inhaler 2 puff INHALATION Q2-6H Xifaxan 550 mg tablet 550 mg PO DAILY Spiriva Respimat 2.5 mcg/actuation mist 2 puff inhalation DAILY ondansetron 4 mg tablet,disintegrating 4 mg PO Q6H PRN (Reason: nausea and vomiting) 3 Days Qty: 12 0RF <Nicolas Ho MD - Last Filed: 10/29/24 21:23> Follow-up/Referrals: Savage,MD Ankush [Primary Care Provider] - 1 Week <Nicolas Ho MD - Last Filed: 10/29/24 21:23> Time of Disposition: 04:04 <Nicolas Ho MD - Last Filed: 10/29/24 21:23> 04:04 <Vikram Jones MD - Last Filed: 10/29/24 04:04>
[2024-10-28 17:51] LABS: Basophils Absolute Auto 0.1 K/mm3 (0.0-0.1); Basophils Percent Auto 1.3 % (0.2-1.2); Hematocrit 50.4 % (42.0-52.0); Hemoglobin 16.6 g/dL (14.0-18.0); Immature Granulocyte Absolute 0.05 K/mm3 (0.00-0.031); Immature Granulocyte Percent A 0.6 % (0-0.5); Lymphocytes Absolute Auto 1.73 K/mm3 (0.9-3.2); Lymphocytes Percent Auto 20.2 % (18.3-44.2); Mean Corpuscular HGB Conc 32.9 g/dl (32-36); Mean Corpuscular Volume 103.3 fl (80-100); Mean Platelet Volume 10.3 fl (7.4-10.4); Monocytes Absolute Auto 0.9 K/mm3 (0.1-0.6); Monocytes Percent Auto 9.9 % (2.6-8.5); Neutrophils Absolute Auto 5.8 K/mm3 (1.3-6.7); Platelet Count Result 244 k/mm3 (150-375); Red Blood Count 4.88 M/mm3 (4.6-6.20); Red Cell Distribution Width 13.9 % (11.5-14.5); White Blood Count 8.6 K/mm3 (4.5-10.0)
[2024-10-28 18:07] LABS: Acetaminophen < 10 ug/mL (10-30); Salicylate < 1.0 mg/dL (2-20)
[2024-10-28 18:18] LABS: Ethanol 330 mg/dL (<10)
[2024-10-28 18:37] LABS: Thyroid Stimulating Hormone Reflex 0.428 uIU/mL (0.465-4.68)
[2024-10-28 18:45] LABS: Alanine Aminotransferase 39 U/L (6-50); Alkaline Phosphatase 131 U/L (38-126); Anion Gap 34 mmol/L (4-12); Aspartate Amino Transferase 81 U/L (17-59); Bilirubin,Total 1.3 mg/dL (0.2-1.3); Blood Urea Nitrogen 14 mg/dL (9-20); Calcium 9.1 mg/dL (8.4-10.2); Carbon Dioxide 12 mmol/L (22-30); Chloride 102 mmol/L (98-107); Estimated CRCL calculation 65 ml/min; Estimated Glomerular Filt Rate > 60; Glucose 100 mg/dL (65-110); Sodium 148 mmol/L (137-145)
[2024-10-28 18:58] LABS: Add Urine Microscopic? YES; Appearance Urine Clear (Clear); Bacteria Urine None Seen /hpf; Bilirubin Urine Negative (Negative); Blood Urine 1+ (Negative); Color Urine Dark Yellow (Yellow); Glucose Urine UA Negative (Negative); Hyaline Casts Urine Present /lpf; Ketones Urine 3+ mg/dL (Negative); Leukocyte Esterase Ur Negative LEU/UL (Negative); Need Manual Microscopic Reviewed; Nitrate Urine Negative (Negative); Non Pathogenic Casts >20; Protein Urine 3+ mg/dL (Negative); RBC Urine 0-2 /hpf (0-2); Specific Grav Ur 1.023 (1.001-1.035); Squamous Epithelial Cell Urine Occasional /hpf (Few); WBC Urine 0-5 /hpf (0-3)
[2024-10-28 19:03] LABS: Amphetamine Screen Urine Negative (Negative); Barbiturate Screen Urine Negative (Negative); Benzodiazepines Screen Urine Negative (Negative); Cannabinoid Screen Urine Positive (Negative); Cocaine Screen Urine Negative (Negative); Methadone Screen Urine Negative (Negative); Opiate Screen Urine Negative (Negative); Phencyclidine Screen Urine Negative (Negative)
[2024-10-28 19:12] LABS: Free T4 Free Thyroxine Reflex 1.25 ng/dL (0.78-2.19)
[2024-10-28 20:50] LABS: Total Triiodothyronine (T3) 0.98 NG/ML (0.97-1.69)
[2024-10-28 23:11] VITALS: BP 142/76; PULSE 87; O2SAT 100
[2024-10-29] MEDS: ONDANSETRON HCL ODT 4 MG TABLET PO (02:12)
[2024-10-29 02:15] VITALS: BP 243/87; PULSE 100; RESP 16; O2SAT 98
[2024-10-29 02:27] VITALS: PULSE 83; RESP 20
[2024-10-29] MEDS: ALBUTEROL SULFATE NEB 2.5 MG/3 ML INH 5 MG INHALATION (02:27)
[2024-10-29 02:45] VITALS: PULSE 93; RESP 18
[2024-10-29 03:06] LABS: Ethanol 118 mg/dL (<10)
== END 2024-10-29 04:11 | disposition home or self-care (01) ==
PROVIDERS: Emergency Medicine; Emergency Provider Preventive Medicine Aerospace Medicine; PCP Family Medicine
DX: F10.94 Alcohol use, unspecified with alcohol-induced mood disorder (principal); Y90.8 Blood alcohol level of 240 mg/100 ml or more; F17.210 Nicotine dependence, cigarettes, uncomplicated; Z96.641 Presence of right artificial hip joint; Z79.899 Other long term (current) drug therapy
CPT/HCPCS: 36415; 80053; 80143; 80179; 80307; 81001; 82077; 84439; 84443; 84480; 85025; 94640; 96374; 99284; A9270

== ENCOUNTER 2024-11-22 14:04 | Outpatient (CLI) | payer MEDICARE, SELFPAY ==
--- NOTE | ~2024-11-22 | XR_ITS ---
XR knee LT 3V Ordering provider: Ankush Wan, History: . Pain of lt knee, chronic hip and low back pain . Comparison: None FINDINGS: BONES: No acute fracture or dislocation. JOINT SPACES: Normal. SOFT TISSUES: Atherosclerotic changes IMPRESSION: No acute osseous abnormality left knee. Consider MRI knee if there is concern for soft tissue internal derangement. Reviewed, dictated and finalized at location A.
--- NOTE | ~2024-11-22 | XR_ITS ---
XR hip LT 2V w AP pelvis Ordering provider: Ankush Wan, History: . Pain of lt knee, chronic hip and low back pain . Comparison: April 19, 2024 FINDINGS: BONES: No acute fracture or dislocation. Lucency projected over the left femoral head is most likely summation shadow and unchanged from previous examination. HIP JOINT SPACES: Right hip arthroplasty. Severe left hip osteoarthritic changes. SACROILIAC JOINT SPACES/LUMBAR SPINE: The sacroiliac joint spaces are normal. Mild degenerative marin es of the visualized lower lumbar spine. PUBIC SYMPHYSIS: Normal. SOFT TISSUES: Normal. IMPRESSION: No acute osseous abnormality pelvis and left hip. Right hip arthroplasty. Severe left hip osteoarthritic changes. Reviewed, dictated and finalized at location A.
--- NOTE | ~2024-11-22 | CT_ITS ---
CT Scan of the Chest without Contrast: Clinical Indication: Lung cancer screening, nicotine dependence Technique: Contiguous sections were acquired throughout the chest without intravenous contrast. Dose reduction technique was used on this scan by utilizing automated exposure control and iterative recon struction technique. The dose-length product (DLP) was 115.47 mGy-cm. Findings: There is no evidence of any significant mediastinal, hilar or axillary lymphadenopathy. There are ext ensive atherosclerotic calcifications of the aorta and coronary arteries. There is no evidence of pleural or pericardial effusion. The lungs are clear. No pulmonary nodules or infiltrates are noted. Mild right apical emphysematous c hange present. Images through the upper abdomen reveal nodular contour of the liver. Calcified gallstones are presen t. T12 compression fracture present with thoracolumbar spinal fixation hardware surrounding this leve l. Impression: Lung RADS 1: Negative. 12 month follow-up screening CT advised. Cirrhotic liver and cholelithiasis. Reviewed, dictated and finalized at location . Impression: Lung RADS 1: Negative. 12 month follow-up screening CT advised. Cirrhotic liver and cholelithiasis.
--- NOTE | ~2024-11-22 | XR_ITS ---
3 VIEWS LUMBAR SPINE Ordering provider: Ankush Wan, History: . Pain of lt knee, chronic hip and low back pain . Comparison: None. FINDINGS: VERTEBRAL BODIES: No visible fracture or subluxation. Postoperative changes in the thoracolumbar area . Right hip arthroplasty. Severe left hip osteoarthritic changes. DISK SPACES: Narrowing of the disc L5-S1. SOFT TISSUES: Atherosclerotic changes of the aorta. IMPRESSION: No acute osseous abnormality lumbar spine. Degenerative disc disease at the level of L5-S1. Reviewed, dictated and finalized at location A.
--- OUTSIDE RECORDS SUMMARY | 2024-11-22 14:11 | XMS_ITS | Clinical Summary ---
Author Organization [facility] Address [address] [place] [address] Care Team Providers Care Flarer Name Role Phone Wan, Ankush Santamaria Primary Care Provider Unavailab le Source Comments [facility],non-owned Affiliates and Associated Physician Practices is amultiple site organization consisting of ambulatory clinics and hospital sitesin [place], [place], [place] and [place]. This disclosure is being madepursuant to the Care Everywhere program and may not contain all information available regarding this patient. 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 Gender Identity Not on file Sexual Orientation Not on file Last Filed Vital Signs Vital Sign Reading Time Taken Comments Blood Pressure 146/90 07/10/2024 11:43 AM WEB DEVELOPMENT MANAGER Pulse 74 07/10/2024 11:43 AM WEB DEVELOPMENT MANAGER Temperature 36.9 C (98.4 F) 07/10/2024 11:43 AM WEB DEVELOPMENT MANAGER Respiratory Rate 16 12/14/2022 1:38 PM CDT Oxygen Saturation 98% 07/10/2024 11:43 AM WEB DEVELOPMENT MANAGER Inhaled Oxygen Concentration - - Weight 73.8 kg (162 lb 9.6 oz) 07/10/2024 11:43 AM WEB DEVELOPMENT MANAGER Height 172.7 cm (5' 8 ) 07/10/2024 11:43 AM WEB DEVELOPMENT MANAGER Body Mass Index 24.72 07/10/2024 11:43 AM WEB DEVELOPMENT MANAGER Plan of Treatment Upcoming Encounters Date Type Department Care Team (Late st Contact Info) Description 01/08/2025 9:30 AM CDT Appointment [facility] [address] [place] [id number] Travis Burnett MD [address] [place] [phone] 01/08/2025 11:00 AM CDT Office Visit [facility] [address] [facility] [place] [address] Travis Burnett MD [address] [place] [address] Health Maintenance Due Date Last [...] Hepatitis C Antibody NON-REACTI VE NON-REACT KRISTA [facility] Comment: HCV antibody was non-reactive. There is no laboratory evidence of HCV infection. In most cases, no further action is required. However, if recent HCV exposure is suspected, a test for HCV RNA (test code 94337) is suggested. For additional information please refer to http://education.Kudan/faq/XSN32z1 (This link is being provided for informational/ educational purposes only.) Test Performed at: [facility] [id number] [place] [address] JAMES WHITTAKER MD Blood BLOOD SPECIMEN / Unknown 12/21/2022 12:22 PM CDT 12/21/2022 12:23 PM CDT Travis Burnett MD LAB - CHEMISTRY ORDERABLES Fi nal Result [facility] [id number] [place] [address] from Last 3 Months or Most Recently Relevant to Health Maintenance Insurance [employer] [place] [employer] MEDICARE ADV HMO & PPO Advance Directives * FULL RESUSCITATION (Latest Code Status on File) Date Activated Date Inactivated Comments 01/18/2012 8:12 AM 01/29/2012 12:07 PM Care Teams Flarer Relationship Specialty Start Date End Date Ankush Wan Update Information PCP - General 10/21/22
--- OUTSIDE RECORDS SUMMARY | 2024-11-22 14:12 | XMS_ITS | Data Portability ---
Author Organization [place] [employer], Main Office Address [address] [place] [address] Care Team Providers Care Batch Trucker Name Role Phone ANKUSH WAN Primary Care Provider [phone] Assessment Encounter Date Assessment Date Assessment LastModified by Organization Details LastModified Time 08/02/2024 08/02/2024 64 yo M with - [...] with Ophtho as per schedule. 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 Cont f/u with Neurosurgeon at [place] as per schedule. Cont f/u with Neuro at [place] as per schedule. Cont f/u with Die Cleaner at [facility] as per schedule. Cont f/u with PT as per schedule. HM: Colonoscopy - 2019, normal as per pt. Cont f/u with GI as per schedule. US AAA - At 67 yrs. Flu - Pt declined. Tdap, Pneumo, Shingrix - At pharmacy/HD. F/u in 3 months. Annual labs, LDCT in 10/26. [email or web address] Not available 08/02/2024 11:35:39 11/07/2024 11/07/2024 64 yo M with - WELL ADULT VISIT - LT HIP PAIN, chronic - LT KNEE PAIN, chronic - B/L KNEE PAIN, chronic - CHRONIC LOW BACK PAIN - H/O BACK SURGERY (2011) - DM II - HLD - HTN - GERD - NEUROPATHY - CHRONIC INSOMNIA - COPD - CIRRHOSIS OF LIVER - INTRACRANIAL ANEURYSM - SMOKER - H/O ALCOHOL ABUSE HbA1c: 6.7(11/11/23) - 5.7(05/14/25) LDCT chest: 11/11/23. Annual labs: 11/01/23. X-ray knees: 11/05/22. Annual labs: 10/13/22. LDCT chest: 08/12/22. D/w pt in detail about his conditions, recent labs & imagines and further plan of care. Will do routine labs, LDCT chest, x-rays. Will refer pt to Ophtho and Blow Torch Burner again. Meds as directed. Cont OTC knee sleeve as directed. Diet and exercise explained in detail. BP & DM diary education given and call us if any concerns. Currently smoking about few cigs per day. Encouraged pt to quit. F/u with Ophtho as per schedule. 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 Cont f/u with Neurosurgeon at [place] as per schedule. Cont f/u with Neuro at [place] as per schedule. Cont f/u with Die Cleaner at [facility] as per schedule. Pt has done PT in the past. HM: Colonoscopy - 2019, normal as per pt. Cont f/u with GI as per schedule. US AAA - At 67 yrs. Flu - Pt declined. Tdap, Pneumo, Shingrix - At pharmacy/HD. F/u in 3 weeks. Annual labs, LDCT in 11/26. Not available 11/07/2024 11:28:19 Plan of Treatment Reminders Order Date Submit Date Provider Last Modified By Organization Details Last Modified Time Details Appointments Follow Up 15 2024 10:30A M Ankush Wan MD Not available Not available Not available Lab uric acid, serum or plasma 2024 025 [facility] (Lab), [address] [place], [address], 11/12/2024 18:53:34 TSH, serum or plasma 2024 025 [facility] (Lab), [address] [place], [address], 11/12/2024 19:26:36 lipid panel, serum 2024 025 [facility] (Lab), [address] [place], [address], 11/12/2024 18:53:27 PSA, serum or plasma [email or web address] [place] [address] (Lab), [address] [place], [address], 11/14/2024 12:42:51 glycohemo globin, total, blood 2024 025 [facility] (Lab), [address] [place], [address], 11/12/2024 19:43:35 microalbu min, urine 2024 025 [facility] (Lab), [address] [place], [address], 11/12/2024 18:58:50 CMP, serum or plasma 2024 025 [facility] (Lab), [address] [place], [address], 11/12/2024 18:53:32 CBC w/ auto diff 2024 025 [facility] (Lab), [address] [place], [address], 11/12/2024 18:49:53 urinalysi s, complete [address] (Lab), [address] [place], [address], 11/14/2024 12:42:51 vitamin B12 + folate, serum or blood [address] (Lab), [address] [place], [address], 11/14/2024 12:42:51 magnesium , serum or plasma 2024 025 [facility] (Lab), [address] [place], [address], 11/12/2024 18:53:41 vitamin D3, 25-hydrox y, serum 2024 025 [facility] (Lab), [address] [place], [address], 11/12/2024 19:59:21 Referral podiatris t referral - Please call patient to schedule an appointme nt. Thank you. 2024 025 DANN Vazquez DPM, [address] [facility], [address], [place], [address], 11/19/2024 16:56:00 ophthalmo logist referral - Please call patient to schedule an appointme nt. Thank you. 2024 025 MARU Hernández, [address] , [place], [address], 11/21/2024 17:45:21 Procedures None recorded. Surgeries None recorded. Imaging XR, lumbosacr al spine, 4 or more view 2024 025 [email or web address] [facility] ([facility]), [address] [place], [address], 11/21/2024 14:06:06 LDCT, chest, for lung cancer screening - F/u on Annual LDCT chest, smoking +++ [address] ([facility]), [address] [place], [address], 11/07/2024 15:21:35 XR, knee, 3 view [address] ([facility]), [address] [place], [address], 11/21/2024 14:06:05 XR, hip + pelvis, unilatera l, 2 or 3 view [address] ([facility]), [address] [place], [address], 11/21/2024 14:06:06 Medication Orders albuterol sulfate HFA 90 mcg/actua tion aerosol inhaler 2024 025 [facility] #[id number], [address] [facility], [place], [place], [id number], 11/07/2024 11:14:32 Spiriva Respimat 2.5 mcg/actua tion solution for inhalatio n 2024 025 [facility] #[id number], [address] [facility], [place], [place], [id number], 11/07/2024 11:14:33 propranol ol 20 mg tablet 2024 025 [facility] #30063, [address], [place], [place], [id number], 11/07/2024 11:14:34 spironola ctone 50 mg tablet 2024 025 [facility] #26140, [address] , [place], [place], [id number], 11/07/2024 11:14:41 furosemid e 20 mg tablet 2024 [facility] #[id number], [address] [facility], [place], [place], [id number], 11/07/2024 11:14:33 atorvasta tin 20 mg tablet 2024 [facility] #18819, [address] [facility], [place], [place], [id number], 11/07/2024 11:14:40 trazodone 150 mg tablet 2024 [facility] #04947, [address] [facility], [place], [place], [id number], 11/07/2024 11:14:39 Xifaxan 550 mg tablet 2024 [facility] #[id number], [address] [facility], [place], [place], [id number], 11/07/2024 11:14:35 levetirac etam 750 mg tablet 2024 [facility] #05883, [address] [facility], [place], [place], [id number], 11/07/2024 11:14:42 metformin ER 500 mg tablet,ex tended release 24 hr 2024 [facility] #73602, [address] [facility], [place], [place], [id number], 11/07/2024 11:14:33 gabapenti n 400 mg capsule 2024 [facility] #12022, [address] [place], [place], [id number], 11/07/2024 11:14:41 propranol ol 20 mg tablet 2024 025 [facility] #22451, [address] [place], [place], [id number], 08/02/2024 12:27:08 spironola ctone 50 mg tablet 2024 [facility] #86987, [address] [facility], [place], [place], [id number], 08/02/2024 12:27:12 furosemid e 20 mg tablet 2024 [facility] #22939, [address] , [place], [place], [id number], 08/02/2024 12:27:04 albuterol sulfate HFA 90 mcg/actua tion aerosol inhaler 2024 [facility] #01757, [address] [facility], [place], [place], [id number], 08/02/2024 12:26:59 Spiriva Respimat 2.5 mcg/actua tion solution for inhalatio n 2024 [facility] #97843, [address] [facility], [place], [place], [id number], 08/02/2024 12:26:39 atorvasta tin 20 mg tablet 2024 [facility] #78992, [address] [facility], [place], [place], [id number], 08/02/2024 12:27:05 trazodone 150 mg tablet 2024 [facility] #66590, [address] [facility], [place], [place], [id number], 08/02/2024 12:26:49 Xifaxan 550 mg tablet 2024 [facility] #68513, [address] [facility], [place], [place], [id number], 08/02/2024 12:27:03 levetirac etam 750 mg tablet 2024 025 [facility] #78969, [address] [facility], [place], [place], [id number], 08/02/2024 12:27:13 metformin ER 500 mg tablet,ex tended release 24 hr 2024 025 [facility] #56084, [address] [facility], [place], [place], [id number], 08/02/2024 12:27:03 gabapenti n 400 mg capsule 2024 025 [facility] #45530, [address] [facility], [place], [place], [id number], 08/02/2024 12:27:06 Patient TargetsNo targets recorded. Patient InstructionsNo instructions recorded. Reason for Referral Blow Torch Burner Referral for Type 2 diabetes mellitus without complication Please call patient to schedule an appointment. Thank you. 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 Thank you. Referring Physician: Ankush Wan [facility], Encounter Date: 11/07/2024 Results Created Date Observation Date Name Description Value Unit Range Abnormal Flag Note LastModifiedBy Organization Detail LastModifiedTime 05/14/20 24 05/14/2024 HEMOG LOBIN A1C HA1C 5.7 % 4.0-6. 0 Diabe marshall Scree crystal Crite tawana: <5.7% Consi stent with absen ce of diabe marshall 5.7-6 .4% Consi stent with incre ased risk for diabe marshall (pred iabet es) >OR=6 .5% Consi stent with diabe marshall REFER ENCE: Diabe marshall Care 2016, 39(Cifuentes ppl.1 ):s13 -s22 Not Available [facility] ([facility]) [address] [place], [address], 05/14/2024 20:53:43 11/13/19 25 11/12/2024 CBC/C OMPLE TE BLD COUNT W/DIF F white blood cells 7.8 x10'3 /uL 4.2-10 .8 Not Available [facility] (Lab) [address] [place], [address], 11/12/2024 19:23:54 11/13/19 25 11/12/2024 CBC/C OMPLE TE BLD COUNT W/DIF F red blood cells 4.29 x10'6 /uL 4.10-5 .80 Not Available [facility] (Lab) [address] [place], [address], 11/12/2024 19:23:54 11/13/19 25 11/12/2024 CBC/C OMPLE TE BLD COUNT W/DIF F hemoglobin 15.0 g/dL 13.2-1 7.0 Not Available [facility] (Lab) [address] [place], [address], 11/12/2024 19:23:54 11/13/19 25 11/12/2024 CBC/C OMPLE TE BLD COUNT W/DIF F hematocrit 45.3 % 39.3-5 0.0 Not Available [facility] (Lab) [address] [place], [address], 11/12/2024 19:23:54 11/13/19 25 11/12/2024 CBC/C OMPLE TE BLD COUNT W/DIF F mean red cell volume 105.6 fL 80.0-9 7.0 high Not Available [facility] (Lab) [address] [place], [address], 11/12/2024 19:23:54 11/13/19 25 11/12/2024 CBC/C OMPLE TE BLD COUNT W/DIF F mean red cell hemoglobin 35.0 pg 27.0-3 3.0 high Not Available [facility] (Lab) [address] [place], [address], 11/12/2024 19:23:54 11/13/19 25 11/12/2024 CBC/C OMPLE TE BLD COUNT W/DIF F mean RBC HGB concentratio n 33.1 g/dL 31.0-3 6.0 Not Available [facility] (Lab) [address] [place], [address], 11/12/2024 19:23:54 11/13/19 25 11/12/2024 CBC/C OMPLE TE BLD COUNT W/DIF F red cell distribution width 13.6 % 11.8-1 5.5 Not Available [facility] (Lab) [address] [place], [address], 11/12/2024 19:23:54 11/13/19 25 11/12/2024 CBC/C OMPLE TE BLD COUNT W/DIF F platelets 224 x10'3 /uL 150-40 0 Not Available [facility] (Lab) [address] [place], [address], 11/12/2024 19:23:54 11/13/19 25 11/12/2024 CBC/C OMPLE TE BLD COUNT W/DIF F mean platelet volume 9.9 fL 9.0-12 .4 Not Available [facility] (Lab) [address] [place], [address], 11/12/2024 19:23:54 11/13/19 25 11/12/2024 CBC/C OMPLE TE BLD COUNT W/DIF F neutrophils 63.9 % 39.0-7 2.0 Not Available [facility] (Lab) [address] [place], [address], 11/12/2024 19:23:54 11/13/19 25 11/12/2024 CBC/C OMPLE TE BLD COUNT W/DIF F lymphocytes 21.3 % 16.0-4 7.0 Not Available [facility] (Lab) [address] [place], [address], 11/12/2024 19:23:54 11/13/19 25 11/12/2024 CBC/C OMPLE TE BLD COUNT W/DIF F monocytes 12.0 % 5.0-12 .0 Not Available [facility] (Lab) [address] [place], [address], 11/12/2024 19:23:54 11/13/19 25 11/12/2024 CBC/C OMPLE TE BLD COUNT W/DIF F eosinophils 1.3 % 1.0-7. 0 Not Available [facility] (Lab) [address] [place], [address], 11/12/2024 19:23:54 11/13/19 25 11/12/2024 CBC/C OMPLE TE BLD COUNT W/DIF F basophils 1.0 % 0.0-2. 0 Not Available [facility] (Lab) [address] [place], [address], 11/12/2024 19:23:54 11/13/19 25 11/12/2024 CBC/C OMPLE TE BLD COUNT W/DIF F immature granulocytes 0.5 % 0.00-0 .50 Not Available [facility] (Lab) [address] [place], [address], 11/12/2024 19:23:54 11/13/19 25 11/12/2024 CBC/C OMPLE TE BLD COUNT W/DIF F neutrophils, absolute count 4.99 x10'3 /uL 1.5-8. 0 Not Available [facility] (Lab) [address] [place], [address], 11/12/2024 19:23:54 11/13/19 25 11/12/2024 CBC/C OMPLE TE BLD COUNT W/DIF F lymphocytes, absolute count 1.66 x10'3 /uL 1.07-3 .43 Not Available [facility] (Lab) [address] [place], [address], 11/12/2024 19:23:54 11/13/19 25 11/12/2024 CBC/C OMPLE TE BLD COUNT W/DIF F monocytes, absolute count 0.94 x10'3 /uL 0.29-0 .99 Not Available [facility] (Lab) [address] [place], [address], 11/12/2024 19:23:54 11/13/19 25 11/12/2024 CBC/C OMPLE TE BLD COUNT W/DIF F eosinophils, absolute count 0.10 x10'3 /uL 0.02-0 .53 Not Available [facility] (Lab) [address] [place], [address], 11/12/2024 19:23:54 11/13/19 25 11/12/2024 CBC/C OMPLE TE BLD COUNT W/DIF F basophils, absolute count 0.08 x10'3 /uL 0.01-0 .08 Not Available [facility] (Lab) [address] [place], [address], 11/12/2024 19:23:54 11/13/19 25 11/12/2024 CBC/C OMPLE TE BLD COUNT W/DIF F immature granulocytes ,absolute 0.04 x10'3 /uL 0.00-0 .05 Not Available [facility] (Lab) [address] [place], [address], 11/12/2024 19:23:54 11/13/1911/12/2024 CBC/C OMPLE TE BLD COUNT W/DIF F nucleated red blood cells 0.0 % -0 Not Available [facility] (Lab) [address] [place], [address], 11/12/2024 19:23:54 11/13/19 25 11/12/2024 CBC/C OMPLE TE BLD COUNT W/DIF F NRBC# 0.00 x10'3 /uL Not Available [facility] (Lab) [address] [place], [address], 11/12/2024 19:23:54 11/13/19 25 11/12/2024 CBC/C OMPLE TE BLD COUNT W/DIF F macro 2+ Not Available [facility] (Lab) [address] [place], [address], 11/12/2024 19:23:54 11/13/1911/12/2024 URINA LYSIS COMPL ETE/I RIS W/RFX color LIGHT- YELLOW Not Available [facility] (Lab) [address] [place], [address], 11/12/2024 18:51:21 11/13/19 25 11/12/2024 URINA LYSIS COMPL ETE/I RIS W/RFX appear CLEAR Not Available [facility] (Lab) [address] [place], [address], 11/12/2024 18:51:21 11/13/19 25 11/12/2024 URINA LYSIS COMPL ETE/I RIS W/RFX specific gravity 1.009 1.001- 1.030 Not Available [facility] (Lab) [address] [place], [address], 11/12/2024 18:51:21 11/13/19 25 11/12/2024 URINA LYSIS COMPL ETE/I RIS W/RFX pH 6.0 pH_un its 5.0-9. 0 Not Available [facility] (Lab) [address] [place], [address], 11/12/2024 18:51:21 11/13/19 25 11/12/2024 URINA LYSIS COMPL ETE/I RIS W/RFX leukocytes NEGATI VE tal/u L negati ve- Not Available [facility] (Lab) [address] [place], [address], 11/12/2024 18:51:21 11/13/19 25 11/12/2024 URINA LYSIS COMPL ETE/I RIS W/RFX nitrite NEGATI VE negati ve- Not Available [facility] (Lab) [address] [place], [address], 11/12/2024 18:51:21 11/13/19 25 11/12/2024 URINA LYSIS COMPL ETE/I RIS W/RFX protein NEGATI VE mg/dL negati ve- Not Available [facility] (Lab) [address] [place], [address], 11/12/2024 18:51:21 11/13/19 25 11/12/2024 URINA LYSIS COMPL ETE/I RIS W/RFX glucose NORMAL mg/dL normal - Not Available [facility] (Lab) [address] [place], [address], 11/12/2024 18:51:21 11/13/19 25 11/12/2024 URINA LYSIS COMPL ETE/I RIS W/RFX ketones NEGATI VE mg/dL negati ve- Not Available [facility] (Lab) [address] [place], [address], 11/12/2024 18:51:21 11/13/19 25 11/12/2024 URINA LYSIS COMPL ETE/I RIS W/RFX urobilinogen NORMAL mg/dL normal - Not Available [facility] (Lab) [address] [place], [address], 11/12/2024 18:51:21 11/13/19 25 11/12/2024 URINA LYSIS COMPL ETE/I RIS W/RFX bilirubin NEGATI VE mg/dL negati ve- Not Available [facility] (Lab) [address] [place], [address], 11/12/2024 18:51:21 11/13/19 25 11/12/2024 URINA LYSIS COMPL ETE/I RIS W/RFX blood NEGATI VE mg/dL negati ve- Not Available [facility] (Lab) [address] [place], [address], 11/12/2024 18:51:21 11/13/19 25 11/12/2024 URINA LYSIS COMPL ETE/I RIS W/RFX white blood cells 0-8 /i??h pfi?? 0-8 Not Available [facility] (Lab) [address] [place], [address], 11/12/2024 18:51:21 11/13/19 25 11/12/2024 URINA LYSIS COMPL ETE/I RIS W/RFX red blood cells 0-4 /i??h pfi?? 0-4 Not Available [facility] (Lab) [address] [place], [address], 11/12/2024 18:51:21 11/13/19 25 11/12/2024 URINA LYSIS COMPL ETE/I RIS W/RFX bacteria NONE none seen- Not Available [facility] (Lab) [address] [place], [address], 11/12/2024 18:51:21 11/13/19 25 11/12/2024 URINA LYSIS COMPL ETE/I RIS W/RFX squamous epithelial OCCASI ONAL /i??l pfi?? abnormal Not Available [facility] (Lab) [address] [place], [address], 11/12/2024 18:51:21 11/13/19 25 11/12/2024 LIPID PANEL cholesterol 121 mg/dL 140-19 9 low NIH ROSIE NSUS RECOM MENDA TION FOR ABDOUL STERO L: ADULT CHILD LOW RISK: <200 <170 BORDE RLINE : <200- 239 ----- HIGH RISK: >240 >200 Not Available [facility] (Lab) [address] [place], [address], 11/12/2024 18:53:27 11/13/1911/12/2024 LIPID PANEL triglyceride s 91 mg/dL 0-150 NIH ROSIE NSUS REPOR T RECOM MENDA TION FOR TRIGL YCERI MACIE: ADULT CHILD LOW RISK: <150 ----- BODER LINE: 150-1 99 ----- HIGH RISK: >200 ----- Not Available [facility] (Lab) [address] [place], [address], 11/12/2024 18:53:27 11/13/1911/12/2024 LIPID PANEL HDL cholesterol 41 mg/dL 40- Not Available [facility] (Lab) [address] [place], [address], 11/12/2024 18:53:27 11/13/19 25 11/12/2024 LIPID PANEL LDL cholesterol, calculated 62 mg/dL 0-130 NIH ROSIE NSUS REPOR T RECOM MENDA TIONS FOR LDL: ADULT CHILD LOW RISK <130 <110 (OPTI MAL LDL) <100 ----- BORDE RLINE : 130-1 59 ----- HIGH RISK: >160 >130 A TRIGL YCERI DE RESUL T >400 INVAL IDATE S THE CALCU LATIO N FOR LDL FRACT IONAT ION - THE LDL RESUL T WILL NOT BE REPOR ARACELI. Not Available [facility] (Lab) [address] [place], [address], 11/12/2024 18:53:27 11/13/1911/12/2024 COMPR EHENS KRISTA METAB OLIC PANEL sodium 140 mmol/ L 137-14 5 Not Available [facility] (Lab) [address] [place], [address], 11/12/2024 18:53:31 11/13/19 25 11/12/2024 COMPR EHENS KRISTA METAB OLIC PANEL potassium 4.3 mmol/ L 3.5-5. 1 Not Available [facility] (Lab) [address] [place], [address], 11/12/2024 18:53:31 11/13/19 25 11/12/2024 COMPR EHENS KRISTA METAB OLIC PANEL chloride 104 mmol/ L 98-107 Not Available [facility] (Lab) [address] [place], [address], 11/12/2024 18:53:31 11/13/19 25 11/12/2024 COMPR EHENS KRISTA METAB OLIC PANEL carbon dioxide 29 mmol/ L 22-30 Not Available [facility] (Lab) [address] [place], [address], 11/12/2024 18:53:31 11/13/19 25 11/12/2024 COMPR EHENS KRISTA METAB OLIC PANEL anion gap 11.3 mmol/ L 14-22 low Not Available [facility] (Lab) [address] [place], [address], 11/12/2024 18:53:31 11/13/19 25 11/12/2024 COMPR EHENS KRISTA METAB OLIC PANEL glucose 142 mg/dL 70-99 high Not Available [facility] (Lab) [address] [place], [address], 11/12/2024 18:53:31 11/13/19 25 11/12/2024 COMPR EHENS KRISTA METAB OLIC PANEL BUN 8 mg/dL 8-19 Not Available [facility] (Lab) [address] [place], [address], 11/12/2024 18:53:31 11/13/19 25 11/12/2024 COMPR EHENS KRISTA METAB OLIC PANEL creatinine 0.63 mg/dL 0.66-1 .25 low Not Available [facility] (Lab) [address] [place], [address], 11/12/2024 18:53:31 11/13/19 25 11/12/2024 COMPR EHENS KRISTA METAB OLIC PANEL GFR >60 Refer ence Range : Chloride ge GFR Healt hy Adult : >60 mL/mi n/1.7 3 m2 Chron ic Kidne y Disea se: 15-60 mL/mi n/1.7 3 m2 Kidne y Failu re: <15/m L/min /1.73 m2 www.n [facility].g ov The MDRD study equat ion has not been valid ated in child j luis <18 years of age; pregn ant women ; the elder ly >85 years of age; or in some racia l or ethni c subgr oups, such as Hispa nics. Outsi de the valid ated mario eters , estim ated GFR is less accur ate, requi ring clini shay judgm ent on a case- by-ca se basis . Clini shay inter preta tion for other races and ages must be made by the clini leatha. The MDRD study equat ion has not been valid ated for the evalu ation of serum creat inine relat ed to nutri keila l statu s or medic ation usage . For perso ns <18 years of age, a pedia tric GFR calcu lator is avail able on the [facility] websi te: https ://jia carty.donald chaudhry.o rg/pr ofess ional s/kdo qi/gf r_cal culat or Not Available [facility] (Lab) [address] [place], [address], 11/12/2024 18:53:31 11/13/19 25 11/12/2024 COMPR EHENS KRISTA METAB OLIC PANEL alkaline phosphatase 104 U/L 38-126 Not Available [facility] (Lab) [address] [place], [address], 11/12/2024 18:53:31 11/13/19 25 11/12/2024 COMPR EHENS KRISTA METAB OLIC PANEL alanine aminotransfe rase 31 U/L 0-50 Not Available [facility] (Lab) [address] [place], [address], 11/12/2024 18:53:31 11/13/19 25 11/12/2024 COMPR EHENS KRISTA METAB OLIC PANEL aspartate aminotransfe rase 38 U/L 15-46 Not Available [facility] (Lab) [address] [place], [address], 11/12/2024 18:53:31 11/13/19 25 11/12/2024 COMPR EHENS KRISTA METAB OLIC PANEL bilirubin, total 0.50 mg/dL 0.20-1 .30 Not Available [facility] (Lab) [address] [place], [address], 11/12/2024 18:53:31 11/13/19 25 11/12/2024 COMPR EHENS KRISTA METAB OLIC PANEL calcium 9.1 mg/dL 8.4-10 .2 Not Available [facility] (Lab) [address] [place], [address], 11/12/2024 18:53:31 11/13/19 25 11/12/2024 COMPR EHENS KRISTA METAB OLIC PANEL total protein 6.5 g/dL 6.3-8. 2 Not Available [facility] (Lab) [address] [place], [address], 11/12/2024 18:53:31 11/13/19 25 11/12/2024 COMPR EHENS KRISTA METAB OLIC PANEL albumin 3.7 g/dL 3.4-5. 0 Not Available [facility] (Lab) [address] [place], [address], 11/12/2024 18:53:31 11/13/19 25 11/12/2024 COMPR EHENS KRISTA METAB OLIC PANEL globulin 2.8 g/dL 2.6-4. 2 Not Available [facility] (Lab) [address] [place], [address], 11/12/2024 18:53:31 11/13/1911/12/2024 COMPR EHENS KRISTA METAB OLIC PANEL A/G ratio 1.3 ratio 1.0-2. 0 Not Available [facility] (Lab) [address] [place], [address], 11/12/2024 18:53:31 11/13/19 25 11/12/2024 URIC ACID SERUM uric acid 8.1 mg/dL 3.5-8. 5 Not Available [facility] (Lab) [address] [place], [address], 11/12/2024 18:53:34 11/13/1911/12/2024 MAGNE SIUM magnesium 1.2 mg/dL 1.6-2. 3 low Not Available [facility] (Lab) [address] [place], [address], 11/12/2024 18:53:41 11/13/1911/12/2024 MICRO ALBUM IN RANDO M URINE microalbumin , urine <6.0 mg/L 0.0-16 .6 Not Available [facility] (Lab) [address] [place], [address], 11/12/2024 18:58:49 11/13/1911/12/2024 TSH W/REF YANDY FT4 TSH with reflex free T4 1.030 uIU/m L 0.465- 4.680 Not Available [facility] (Lab) [address] [place], [address], 11/12/2024 19:26:35 11/13/1911/12/2024 PSA SCREE N PSA medicare screen 2.41 NG/mL 0.00-4 .00 Not Available [facility] (Lab) [address] [place], [address], 11/12/2024 19:26:39 11/13/19 25 11/12/2024 HEMOG LOBIN A1C HA1C 5.7 % 4.0-6. 0 Diabe marshall Altheae crystal Crite tawana: <5.7% Consi stent with absen ce of diabe marshall 5.7-6 .4% Consi stent with incre ased risk for diabe marshall (pred iabet es) >OR=6 .5% Consi stent with diabe marshall REFER ENCE: Diabe marshall Care 2015, 39(Cifuentes ppl.1 ):s13 -s22 Not Available [facility] (Lab) [address] [place], [address], 11/12/2024 19:43:35 11/13/19 25 11/12/2024 VITAM IN B12 (CHRISTI CELIA ) vb12 383 pg/mL 239-93 1 Not Available [facility] (Lab) [address] [place], [address], 11/12/2024 19:55:43 11/13/19 25 11/12/2024 FOLAT E, SERUM /PLAS MA folate 13.8 NG/mL 2.76-2 0.0 Not Available [facility] (Lab) [address] [place], [address], 11/12/2024 19:55:49 11/13/19 25 11/12/2024 VITAM IN D 25-HY DROXY vd25oh 47.8 NG/mL 30-100 Vitam in D Statu s: Defic ient: <20 ng/mL Insuf ficie nt: 20-29 ng/mL Suffi cient : 30-10 0 ng/mL Not Available [facility] (Lab) [address] [place], [address], 11/12/2024 19:59:20 Result Notes None recorded. Problems Name Problem SNOMED Code Status Onset Date Resolution Date Notes Provider Name and Address Organization Details Recorded Time Shoulder joint pain 417609046 Active Jaye Brown LPN,MSW null, [place] - [facility] 4 13:37:45 Recurrent dislocation of shoulder region 64555699 Active Jaye Brown LPN,MSW null, [place] - [facility] 4 13:37:45 Disorder of rotator cuff 763568139 Active Jaye Brown LPN,MSW null, [place] - [facility] 4 13:37:45 Disorder of bursa of shoulder region 66268131 Active Jaye Brown LPN,MSW null, [place] - [facility] 4 13:37:45 Osteoarthri tis of shoulder region 49730709 Active Jaye Brown LPN,MSW null, [place] - [facility] 4 13:37:45 Impacted cerumen of bilateral ears 6321396368298 108 Active 2022 Jaye Brown LPN,MSW null, [place] - [facility] 4 13:37:45 Intracrania l aneurysm 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 2022 Jaye Brown LPN,MSW null, [place] - [facility] 4 13:37:45 Chronic obstructive pulmonary disease 74509942 Active 2022 Jaye Brown LPN,MSW null, [place] - [facility] 4 13:37:45 Cirrhosis of liver 89977310 Active 2022 aJye Brown LPN,MSW null, [place] - [facility] 4 13:37:45 Gastroesoph ageal reflux disease without esophagitis 706757091 Active 2022 Jaye Brown LPN,MSW null, [place] - [facility] 4 13:37:45 Bronchitis 20075271 Active 2022 Jaye Brown LPN,MSW null, [place] [facility] 4 13:37:45 History of alcohol abuse 462616568 Active 2022 Jaye Brown LPN,MSW null, [place] - [facility] 4 13:37:45 Hypertensiv e disorder 48477653 Active 2022 Jaye Brown LPN,MSW null, [place] - [facility] 4 13:37:45 Neuropathy 778936791 Active 2022 Jaye Brown LPN,MSW null, [place] - [facility] 4 13:37:45 Chronic insomnia 314982339 Active 2022 Jaye Brown LPN,MSW null, [place] - [facility] 4 13:37:45 Hyperlipide cole 03163259 Active 2022 Jaye Brown LPN,MSW null, [place] - [facility] 4 13:37:45 Pain of left knee joint 6288113405163 07 Active 2022 Jaye Brown LPN,MSW null, [place] - [facility] 4 13:37:45 Pain of right knee joint 5270246651454 00 Active 2022 Jaye Brown LPN,MSW null, [place] [facility] 4 13:37:45 Hepatic encephalopa thy 00502884 Active 2022 Jaye Brown LPN,MSW null, [place] [facility] 4 13:37:45 Chondromala karen of bilateral patellas 8124042370227 9100 Active 2022 Jaye Brown LPN,MSW null, [place] - [facility] 4 13:37:45 Acute meniscal tear, medial 489677796 Active 2022 Jaye Brown LPN,MSW null, [place] - [facility] 4 13:37:45 Osteoarthri tis of left hip joint 2467316532438 08 Active 2022 Jaye Brown LPN,MSW null, [place] - [facility] 4 13:37:45 Acute meniscal tear, medial 864832184 Active 2022 Jaye Brown LPN,MSW null, [place] - [facility] 4 13:37:45 Pain of bilateral knee joints 6186599874763 04 Active 2022 Jaye Brown LPN,MSW null, [facility] [employer] [facility] 4 13:37:45 Seizure disorder 272989623 Active 2022 Jaye Brown LPN,MSW null, [place] [facility] 4 13:37:45 Type 2 diabetes mellitus without complicatio n 218218900 Active 2023 Ankush Wan MD [address], [address], [place], [address], [employer] [facility] [employer] 4 14:13:10 Cigarette smoker 23351902 Active 2024 Ankush Wan MD [address], [address], [place], [address], [employer] [facility] [employer] 5 10:56:05 Smoker 11751518 Active 2024 Ankush Wan MD [address], [address], [place], [address], [employer] [facility] [employer] 5 11:34:39 Pain of hip region 85383493 Active 2024 Ankush Wan MD [address], [address], [place], [address], [employer] [facility] [employer] [facility] 5 11:12:19 Chronic primary low back pain Active 2024 Ankush Wan MD [address], [address], [place], [address], [employer] [facility] [employer] [facility] 5 11:13:11 History of operative procedure on lumbar spinal structure 723663400 Active 2024 Ankush Wan MD [address], [address], [place], [address], [employer] [facility] [employer] [facility] 5 11:13:51 Problem Notes None recorded. Procedures Surgical History Date Name Laterality Status Provider Name and Address Organization Details Recorded Time 11/08/19 25 Smoking Cessation completed Ankush Wan MD [address], [place], [address], [facility] [place] [employer] [facility] 11/07/2024 10:55:11 08/02/19 25 Smoking Cessation completed Ankush Wan MD [address], [place], [address], [facility] 08/02/2024 11:36:09 06/25/20 24 Nail Debridement completed Jewel Hurtado DPM [address], [place], [address], [facility] - [facility] [employer] [facility] 06/25/2024 16:09:45 12/13/19 24 Nail Debridement completed Jewel Hurtado DPM [address], [place], [address], [facility] [place] [employer] [facility] 12/13/2023 14:14:54 11/22/19 24 Ear Irrigation completed Ankush Wan MD [address], [place], [address], [facility] [employer] [facility] [employer] 11/22/2023 14:17:53 11/01/19 24 Medicare Wellness CPT Code, subsequent completed Nicolas White [place] - [facility] [employer] 11/01/2023 11:59:55 09/20/19 24 Transitional_Car e_Management completed Nicolas White [place] - [facility] [place] [employer] 09/20/2023 12:26:05 08/09/19 24 Smoking Cessation completed Ankush Wan MD [address], [place], [address], [facility] [employer] [facility] 08/09/2023 14:56:51 05/19/20 23 Smoking Cessation completed Ankush Wan MD [address], [place], [address], [facility] [employer] [facility] [employer] [facility] 05/19/2023 14:54:27 01/14/20 23 Ortho - Cortisone Injection completed Isac Mai MD [address], [place], [address], [facility] [employer] [facility] [employer] 01/13/2023 13:51:58 09/23/19 Ear Irrigation completed Ankush Wan MD [address] [facility], [address] [address], [place], [address], [facility] 09/22/2022 11:06:53 Knee arthroscopy/surg luz completed Not Available [facility] 09/02/2022 01:48:12 Shoulder joint surgery completed Not Available formerly [facility] 09/02/2022 01:48:12 prosthetic arthroplasty of hip completed Not Available formerly [facility] 09/02/2022 01:48:12 Thoracic surgery ss completed Not Available formerly [facility] 09/02/2022 01:48:12 total replacement of hip completed Jaye Brown LPN, [facility] 08/01/2023 13:37:45 Shoulder completed Jaye Brown LPN, [facility] 08/01/2023 13:37:45 Knee completed Jaye Brown LPN, [facility] 08/01/2023 13:37:45 Hernia Surgery completed Jaye Brown LPN, [facility] 08/01/2023 13:37:45 Back Surgery completed Jaye Brown LPN, MSW [place] - [facility] 08/01/2023 13:37:45 Imaging Results None recorded. Procedure Notes None recorded. Medical Equipment None Reported. Allergies Allergen ID Allergen Name Allergen Category Reaction Reaction Severity Criticality Documentation Date Start Date Code Code System Note Provider Name and Address Organization Details Recorded Time 97396 lisinopri l medicatio n Not available Not available Not available 09/02/2022 06387 RxNorm Michelle Gaviria RN null, [facility] 4 14:29:05 20411 Lexapro medicatio n Not available Not available Not available 01/13/2023 68668 1 RxNorm closi ng of the kaylynn Brown LPN,MSW null, [facility] 13:37:45 45509 lisinopri l medicatio n Not available Not available Not available 01/13/2023 10466 RxNorm closi ng of the kaylynn Brown, [employer]ISH[employer]ACHINE [employer],MSW null, [place] - [facility] 4 13:37:45 Medications Name Sig Start Date Stop Date Status Note LastModified by Organization Details LastModified Time amoxicillin 500 mg capsule TAKE 1 CAPSULE BY MOUTH EVERY 6 HOURS 11/07 completed Not Available Not Available Not Available prednisone 10 mg tablet 05/19 completed Not Available Not Available Not Available atorvastati n 20 mg tablet Take 1 tablet every day by oral route at bedtime for 90 days. 2024 active Not Available Not Available Not Avai lable atorvastati n 10 mg tablet Take 1 [...] 40 mg by injection route. 08/09 completed [facility]: 0003- 0494- 20 Not Available Not Available Not Available cephalexin 500 mg capsule TAKE 1 CAPSULE BY MOUTH TWICE DAILY 01/13 completed Not Available Not Available Not Available pantoprazol e 40 mg tablet,shaneka yed release TAKE 1 TABLET BY MOUTH EVERY DAY IN THE MORNING active Not Available Not Available No t Available trazodone 150 mg tablet Take 1 tablet [...] No t Available furosemide 20 mg tablet Take 1 tablet every day by oral route in the morning for 30 days. 2024 active Not Available Not Available Not Avai lable methylpredn isolone 4 mg tablets in a dose pack FOLLOW PACKAGE DIRECTION S 01/13 completed Not Available Not Available Not Available albuterol sulfate HFA 90 mcg/actuati on aerosol inhaler INHALE 2 PUFFS BY MOUTH EVERY 4 TO 6 HOURS NEEDED active Not Available Not Available No t Available propranolol 20 mg tablet Take 1 tablet twice a [...] Not Available Not Avai lable amoxicillin 875 mg-potassiu m clavulanate 125 mg tablet 07/29 completed Not Available Not Available Not Available oxycodone 5 mg tablet 11/07 completed Not Available Not Available Not Available lactulose 10 gram/15 mL oral solution [...] 40 mg by injection route. 08/09 completed [facility] [phone] Not Available Not Available Not Available Spiriva Respimat 2.5 mcg/actuati on solution for inhalation Inhale 1 puff every day by inhalatio n route as directed. 2024 active Not Available Not Available Not Avai lable Spiriva Respimat 1.25 mcg/actuati on solution for [...] Updated DateTime 4 172.72 cm 23.6 kg/m2 96437.8 2 g 69 /min 14 /min 97 % 97 % 98 [degF] 130 mm[Hg] 80 mm[Hg] Nanci Arnett [facility] [employer] 4 14:02:06 Date Recorded Body height Body mass index (BMI) Body weight Body temperature Oxygen saturation Oxygen saturation in Arterial blood by Pulse oximetry Heart rate Provider Name and Address Organization Details Last Updated DateTime 5 172.72 cm 24.7 kg/m2 00028.6 6 g 97.5 [degF] 96 % 96 % 77 /min Mary Lou Villasenor RN [facility] [employer] 5 12:16:40 Date Recorded Systolic blood pressure Diastolic blood pressure Provider Name and Address Organization Details Last Updated DateTime 08/02/2024 146 mm[Hg] 84 mm[Hg] Ankush Wan MD [address], [facility] [address], [place], [address], [facility] [employer] 08/02/2024 12:30:04 Date Recorded Body height Body mass index (BMI) Body weight Body temperature Oxygen saturation Oxygen saturation in Arterial blood by Pulse oximetry Heart rate Systolic blood pressure Diastolic blood pressure Provider Name and Address Organization Details Last Updated DateTime 5 172.72 cm 24.2 kg/m2 30481.2 9 g 97.2 [degF] 99 % 99 % 73 /min 140 mm[Hg] 80 mm[Hg] Mary Lou Villasenor RN [place] [facility] [employer] 5 11:04:38 Social History Question Answer Notes LastModified by Organization Details LastModified Time Tobacco Smoking Status Current Every Day Smoker TRACY Bonilla, [employer] 01/13/2023 13:48:15 Do You Have An Advance Directive? No MIGRATION.030 [id number] Information not available 09/02/2022 Is Blood Transfusion Acceptable In An Emergency? Yes Information not available 08/09/2023 What Is Your Level Of Caffeine Consumption? None Information not available 08/09/2023 What Is Your Code Status? Full Code Information not available 08/09/2023 In The 14 Days Before Symptom Onset, Have You Had Close Contact With A Laboratory-confi rmed COVID-19 While That Case Was Ill? No MIGRATION.0301 [id number] Information not available 09/02/2022 In The 14 Days Before Symptom Onset, Have You Had Close Contact With A Person Who Is Under Investigation For COVID-19 While That Person Was Ill? No MIGRATION.0301 [id number] Information not available 09/02/2022 What Type Of Diet Are You Following? REGULAR MIGRATION.030 [id number] Information not available 09/02/2022 Which Illicit Or Recreational Drugs Have You Used? Marijuana Information not available 11/07/2024 What Is The Highest Grade Or Level Of School You Have Completed Or The Highest Degree You Have Received? [id number] X2 MIGRATION.030 [id number] Information not available 09/02/2022 How Many Days [...] Any Guns Present In Your Home? Yes MIGRATION.0301 [id number] Information not available 09/02/2022 How Many Years Have You Used Illicit Or Recreational Drugs? 50 [email or web address] Information not available 11/07/2024 Where [facility] You Live? [facility] MIGRATION.0301 [id number] Information not available 09/02/2022 Do You Have A Medical Power Of Mushroom Cutter? No MIGRATION.0301 [id number] Information not available 09/02/2022 What Was The Date Of Your Most Recent Tobacco Screening? 12/13/2023 Information not available 12/13/2023 How Many Children Do You Have? 0 Information not available 08/09/2023 What Is Your Current Pack Years? 20-29packyears [email or web address] Information not available 11/07/2024 Do You Have Any Pets? No MIGRATION.0301 [id number] Information not available 09/02/2022 What Is Your Relationship Status? MIGRATION.0301 [id number] Information not available 09/02/2022 Do You Use Your Seat Belt Or Car Seat Routinely? Yes Information not available 08/09/2023 Do You Have Smoke And Carbon Monoxide Detectors In Your Home? Yes MIGRATION.0301 [id number] Information not available 09/02/2022 At What Age Did You Start Smoking Tobacco? 32 MIGRATION.0301 144614 Information not available 09/02/2022 Are You Passively Exposed To Smoke? No MIGRATION.0301 [id number] Information not available 09/02/2022 Are There Any Smokers In Your House? No MIGRATION.0301 [id number] Information not available 09/02/2022 How Much Tobacco Do You Smoke? No 2 Cig Per Day Information not available 08/09/2023 Do You Participate In Social Media? No Information not available 08/09/2023 What Types Of Sporting Activities Do You Participate In? Walking Information not available 08/09/2023 Do You Use Sunscreen Routinely? No MIGRATION.0301 021752 Information not available 09/02/2022 How Many Years Have You Smoked Tobacco? 25 Information not available 01/13/2023 Have You Recently Traveled Abroad? No MIGRATION.0301 167002 Information not available 09/02/2022 Are You Currently In School? No MIGRATION.0301 [id number] Information not available 09/02/2022 Sex: Unknown Functional Status Question Answer Note LastModified by [employer] Details LastModified Time Do you use any illicit or recreational drugs? Yes Marijuana once a day, trying to quit [email or web address] Information not available 11/07/2024 Do you or have you ever used any other forms of tobacco or nicotine? No [email or web address] Information not available 11/07/2024 What is your level of alcohol consumption? None Information not available 01/13/2023 Are you currently employed? No disability Information not available 08/09/2023 What is your exercise level? Occasional just joined the [employer] MIGRATION.88035 [id number] Information not available 09/02/2022 Mental Status Question Answer Note LastModified by [employer] Details LastModified Time Do you feel stressed (tense, restless, nervous, or anxious, or unable to sleep at night)? [id number] Information not available 09/02/2022 Family History Relationship Description Onset Age of this Age Resolved Age Notes LastModified by Organization Details LastModified Time Father No current problems or disability MIGRATION.929 [id number] Not available 09/02/2022 01:48:16 Mother No current problems or disability MIGRATION.736 [id number] Not available 09/02/2022 01:48:16 Father Hypertensive disorder [email or web address] Not available 07/05 13:37:44 Mother Diabetes mellitus [email or web address] Not available 07/05 13:37:44 Medical History Condition Response SLEEP DISORDER Y ANEURYSM Y HYPERTENSION Y HIGH CHOLESTEROL / HYPERLIPIDEMIA Y HEPATITIS / LIVER DISEASE Y Past Encounters Encounter ID Performer Location Encounter Start Date Encounter Closed Date Diagnosis/Indication Diagnosis SNOMED-CT Code Diagnosis ICD10 Code Diagnosis Note [id number] Ankush Wan MD [facility] [address] [address] 07/29/2022 00:00:00 07/29/2022 17:00:07 [id number] Ankush Wan MD [address] [address] 08/25/2022 00:00:00 08/25/2022 14:54:13 [id number] Ankush Wan MD [address] [address] 09/22/2022 10:29:03 09/22/2022 11:06:32 Adult health examination 259501026 Z00.00 Chronic ob structive pulmonary disease 12348935 J44.9 History of alcohol abuse 239216476 F10.10 Neuropathy 091127654 G62 .9 Cirrhosis of liver 007 K74.60 Impacted c erumen of bilateral ears 3708174886 329896 H61.23 [id number] Ankush Wan MD [address] [address] 10/13/2022 12:41:28 10/13/2022 13:03:57 Chronic obstructive pulmonary disease 24354600 J44.9 History of alcohol abuse 695990732 F10.10 Neuropathy 560067091 G62 .9 Cirrhosis of liver 007 K74.60 Chronic insomnia 7905220 04 F51.04 Intracranial aneurysm 12 5982087 I67.1 [id number] Ankush Wan MD [address] [address] 11/03/2022 14:55:24 11/03/2022 15:15:47 Chronic insomnia 362714371 F51.04 Chronic ob structive pulmonary disease 90945536 J44.9 Neuropathy 668957859 G62 .9 Cirrhosis of liver 007 K74.60 History of alcohol abuse 476130818 F10.10 Intracranial aneurysm 12 5302903 I67.1 Hyperlipidemia 96126375 E78.5 Pain of le ft knee joint 5787764497 76128 M25.562 Pain of ri ght knee joint 4879104862 77164 M25.561 [id number] Ankush Wan MD [facility] [address] [address] 11/17/2022 12:44:03 11/17/2022 13:51:48 [id number] Ankush Wan MD [address] [address] 11/25/2022 14:01:54 11/25/2022 14:23:09 Hyperlipidemia 69315598 E78.5 Chronic insomnia 3734390 04 F51.04 Chronic ob structive pulmonary disease 08283709 J44.9 Neuropathy 567852613 G62 .9 Cirrhosis of liver 007 K74.60 History of alcohol abuse 174016312 F10.10 Intracranial aneurysm 12 9462072 I67.1 Pain of le ft knee joint 5913917342 81831 M25.562 Pain of ri ght knee joint 8534049083 10080 M25.561 [id number] Ankush Wan MD [address] [address] 01/05/2023 12:29:42 01/05/2023 13:03:03 Pain of left knee joint 9749987711 53481 M25.562 Pain of ri ght knee joint 5675019007 75093 M25.561 Hyperlipidemia 87133621 E78.5 Chronic insomnia 5081205 04 F51.04 Chronic ob structive pulmonary disease 18966148 J44.9 Neuropathy 779856378 G62 .9 Cirrhosis of liver 007 K74.60 History of alcohol abuse 221700037 F10.10 Intracranial aneurysm 12 8368898 I67.1 Hepatic encephalopathy 17137219 K76.82 [id number] Isac Mai MD [facility] [place] [address] [place] [address] 01/13/2023 13:13:19 01/13/2023 14:38:05 Chondromalacia of bilateral patellas 0167088215 3524887 M22.42 LEFT>RIGHT [id number] Ankush Wan MD [address] [address] 02/08/2023 14:46:20 02/08/2023 15:51:19 [id number] Ankush Wan MD [address] [address] 02/16/2023 14:01:24 02/16/2023 14:30:43 Pain of left knee joint 1976651348 25861 M25.562 Pain of ri ght knee joint 1142398404 77538 M25.561 Chronic insomnia 2302343 04 F51.04 Hyperlipidemia 59219981 E78.5 Chronic ob structive pulmonary disease 08477757 J44.9 Neuropathy 672392669 G62 .9 Cirrhosis of liver 16771 007 K74.60 History of alcohol abuse 263893725 F10.10 Intracranial aneurysm 12 3903101 I67.1 Hepatic encephalopathy 72237923 K76.82 [id number] Isac Mai MD [facility] [place] [address] [place] [address] 02/24/2023 14:01:06 02/24/2023 15:01:42 Chondromalacia of bilateral patellas 3095634900 5929377 M22.42 Acute meni scal tear, medial 845818572 S83.242A History of total replacement of right hip joint 1851144418 08393 Z96.641 Osteoarthr itis of left hip joint 9779872663 67049 M16.12 [id number] Ankush Wan MD [address] [address] 03/29/2023 14:54:22 03/29/2023 15:43:36 [id number] Ankush Wan MD [address] [address] 05/19/2023 14:07:07 05/19/2023 15:01:58 Hyperlipidemia 94028181 E78.5 Pain of le ft knee joint 0110498686 15140 M25.562 Pain of ri ght knee joint 9156609912 94032 M25.561 Chronic insomnia 3903002 04 F51.04 Chronic ob structive pulmonary disease 40585639 J44.9 Neuropathy 705990545 G62 .9 Cirrhosis of liver 007 K74.60 History of alcohol abuse 627997462 F10.10 Intracranial aneurysm 12 7944935 I67.1 Hepatic encephalopathy 01416213 K76.82 Smoker 52905005 F17.204 [id number] Ankush Wan MD [address] [address] 08/09/2023 14:20:32 08/09/2023 15:00:23 Hyperlipidemia 08687550 E78.5 Pain of le ft knee joint 5883880362 11252 M25.562 Pain of ri ght knee joint 1686653583 12330 M25.561 Chronic insomnia 7312463 04 F51.04 Chronic ob structive pulmonary disease 34719104 J44.9 Neuropathy 049018266 G62 .9 Cirrhosis of liver 007 K74.60 History of alcohol abuse 888235454 F10.10 Intracranial aneurysm 12 6444883 I67.1 Hepatic encephalopathy 22779996 K76.82 Smoker 07532803 F17.214 [id number] Ankush Wan MD [address] [address] 09/20/2023 12:24:20 09/20/2023 12:53:10 Transition of care 0552851251 105 Z75.8 Chronic insomnia 7456169 04 F51.04 Hyperlipidemia 58610042 E78.5 Pain of le ft knee joint 9622725038 55887 M25.562 Pain of ri ght knee joint 7283821364 40288 M25.561 Chronic ob structive pulmonary disease 57127620 J44.9 Neuropathy 269882648 G62 .9 Cirrhosis of liver 007 K74.60 History of alcohol abuse 026597290 F10.10 Intracranial aneurysm 12 5162020 I67.1 Repaired on 08/29/23 Hepatic encephalopathy 39386020 K76.82 Smoker 96952603 F17.200 Hospital i npatient stay within past 30 days [id number] 106 Z76.89 [id number] Ankush Wan MD [address] [address] 11/01/2023 11:55:53 11/01/2023 12:32:59 Intracranial aneurysm 888904365 I67.1 Repaired on 08/29/23 Chronic insomnia 3998436 04 F51.04 Hyperlipidemia 91648001 E78.5 Pain of le ft knee joint 8236444077 32489 M25.562 Pain of ri ght knee joint 3238065961 83566 M25.561 Chronic ob structive pulmonary disease 88375204 J44.9 Neuropathy 994011287 G62 .9 Cirrhosis of liver K74.60 History of alcohol abuse 422064074 F10.10 Hepatic encephalopathy 74944759 K76.82 Smoker 00169234 F17.200 Screening for malignant neoplasm of prostate 226475377 Z12.5 Impacted c erumen of bilateral ears 3627544836 755011 H61.23 Seizure disorder 2998936 02 G40.909 Adult heal th examination 954329505 Z00.00 [id number] Ankush Wan MD [address] [address] 11/22/2023 13:57:21 11/22/2023 14:33:42 Intracranial aneurysm 043229833 I67.1 Repaired on 08/29/23 Chronic insomnia 7124855 04 F51.04 Hyperlipidemia 05734967 E78.5 Pain of le ft knee joint 2318170419 15152 M25.562 Pain of ri ght knee joint 2111425310 67090 M25.561 Chronic ob structive pulmonary disease 15915750 J44.9 Neuropathy 922061753 G62 .9 Cirrhosis of liver K74.60 History of alcohol abuse 672538193 F10.10 Hepatic encephalopathy 81828144 K76.82 Smoker 84145169 F17.200 Impacted c erumen of bilateral ears 0588824920 400505 H61.23 Seizure disorder 5446883 02 G40.909 Type 2 fran betes mellitus without complication 982191945 E11.9 [id number] Jewel Hurtado DPM [facility] Podiat[facility] [address] [address] 12/13/2023 11:56:43 12/13/2023 14:16:08 [id number] Ankush Wan MD [address] [address] 02/23/2024 12:39:49 02/23/2024 13:04:41 Hyperlipidemia 31888937 E78.5 Intracranial aneurysm 12 3651832 I67.1 Repaired on 08/29/23 Chronic insomnia 1409146 04 F51.04 Pain of le ft knee joint 2517989204 39640 M25.562 Pain of ri ght knee joint 6683899180 00089 M25.561 Chronic ob structive pulmonary disease 16872030 J44.9 Neuropathy 125486222 G62 .9 Impacted c erumen of bilateral ears 5449745597 307044 H61.23 Cirrhosis of liver 53346 007 K74.60 History of alcohol abuse 925674091 F10.10 Hepatic encephalopathy 17243149 K76.82 Smoker 01440593 F17.200 Seizure disorder 2348094 02 G40.909 Type 2 fran betes mellitus without complication 254277429 E11.9 [id number] Ankush Wan MD [address] [address] 05/14/2024 14:12:51 05/14/2024 16:28:52 [id number] Jewel Hurtado DPM [facility] Podiat[facility] [place] [address] [place] [address] 06/25/2024 13:44:05 06/29/2024 04:07:33 [id number] Ankush Wan MD [address] [address] 08/02/2024 12:07:54 08/02/2024 12:32:48 Type 2 diabetes mellitus without complication 046998018 E11.9 Hyperlipidemia 00051953 E78.5 Intracranial aneurysm 12 2817762 I67.1 Repaired on 08/29/23 Chronic insomnia 2691244 04 F51.04 Pain of le ft knee joint 1669596766 78468 M25.562 Pain of ri ght knee joint 9475446999 06226 M25.561 Chronic ob structive pulmonary disease 84716404 J44.9 Neuropathy 689260031 G62 .9 Cirrhosis of liver 007 K74.60 History of alcohol abuse 527593203 F10.10 Hepatic encephalopathy 72356497 K76.82 Smoker 85682499 F17.200 Seizure disorder 9338080 02 G40.283 [id number] Ankush Wan MD [address] [address] 11/07/2024 10:50:16 11/07/2024 11:22:40 Hyperlipidemia 80273911 E78.5 Type 2 fran betes mellitus without complication 297282999 E11.9 Intracranial aneurysm 12 6393858 I67.1 Repaired on 08/29/23 Chronic insomnia 7477337 04 F51.04 Pain of le ft knee joint 2157759051 32289 M25.562 Chronic Pain of ri ght knee joint 1805627006 47950 M25.561 Chronic Chronic ob structive pulmonary disease 59252891 J44.9 Neuropathy 742422800 G62 .9 Cirrhosis of liver 007 K74.60 History of alcohol abuse 026503336 F10.10 Hepatic encephalopathy 33963879 K76.82 Seizure disorder 7034771 02 G40.909 Cigarette smoker 1366200 7 F17.210 Screening for malignant neoplasm of prostate 533923878 Z12.5 Pain of hip region 98752 002 M25.552 G89.29 Chronic pr imary low back pain 7856679333 7100 M54.59 G89.29 History of operative procedure on lumbar spinal structure 900764091 Z98.890 2011 [id number] Ankush Wan MD [address] [address] 11/12/2024 12:24:08 11/12/2024 13:53:20 Health Concerns Section Related Observation LastModified by Organization Detai ls LastModified Time None Recorded Concern Status LastModified by Organization Details LastModified Time None Recorded Advance Directives Directive N: Payers Encounter Date Sequence Insurance Name Policy Number Policy Coleman Covered Member ID Coleman Member ID Guarantor Name 05/14/2024 1 [employer] (MEDICARE REPLACEMENT /ADVANTAGE - PPO) Jhony Gary [id number] Jhony Gary 06/25/2024 1 [employer] (MEDICARE REPLACEMENT /ADVANTAGE - PPO) Jhony W Schmiedeskamp [id number] Jhony Schmiedeskamp 08/02/2024 1 [employer] (MEDICARE REPLACEMENT /ADVANTAGE - PPO) Jhony W Schmiedeskamp [id number] Jhony Schmiedeskamp 11/07/2024 1 [employer] (MEDICARE REPLACEMENT /ADVANTAGE - PPO) Jhony W Schmiedeskamp [id number] Jhony Schmiedeskamp 11/12/2024 1 [employer] (MEDICARE REPLACEMENT /ADVANTAGE - PPO) Jhony W Schmiedeskamp [id number] Jhony Schmiedeskamp Notes Date Note Type Note Provider Name and Address Organization Details Recorded Time 06/25/2024 text/html Pt RTC for c/o ingrown nails darline great toes, incurvated w/ swollen red borders. Especially inside border, Lt great toe. Jewel Hurtado, DPM [address] [facility], [facility] [address], [place], [address], [facility] [employer] 06/25/2024 16:09:51 08/02/2024 text/html Pt is here for f /u on his lab, meds and chronic conditions. Doing overall much better. Denies any problem with meds. Denies any new concern. Pt had his Lt intracranial aneurysm repair done at [place] from 08/29/23 to 08/31/23. Pt is doing [...] years ago.Pt is f/u with Neuro at [facility] and Neurosurgeon at [place]. Pt is f/u with [facility] at [facility] for his liver cirrhosis.Pt has intracranial aneurysm and was seeing Neuro at [facility] for it and is on meds by them.Pt has h/o alcohol abuse in the past and he has alcoholic cirrhosis due to that. Pt was seeing [facility] at [facility] for it too. Ankush Wan MD [address], [place], [address], [facility] [employer] [facility] [employer] 08/02/2024 12:31:23 11/07/2024 text/html Pt is here for h is annual exam. Doing overall much better. Denies any problem with meds. C/o chronic Lt hip, Lt knee area pain and he has seen Ortho at [facility] and he did not like him, so pt is not seeing them. Pt has chronic low back pain and s/p surgery in 2011 for it. Pt is not f/u with any specialist for it. Pt doesn't want to take any extra Rx med for it. Pt had his Lt intracranial aneurysm repair done at [facility] from 08/29/23 to 08/31/23. Pt is on Keppra 750mg po bid from neuro. Pt says he his checking his BP at home and its good. His BP is always high in doctor's office. C/o b/l knee pain, L>R for last few weeks. Pt has h/o chronic knee pain and had procedure done in the past with Ortho several years ago.Pt is f/u with Neuro at [facility] and Neurosurgeon at [facility]. Pt is f/u with Die [facility]er at [facility] for his liver cirrhosis. Pt has h/o alcohol abuse in the past and he has alcoholic cirrhosis due to that. Ankush Wan MD [address], [place], [address], [facility] [employer] [facility] [employer] 11/07/2024 11:29:20
== END 2024-11-22 14:05 | disposition home or self-care (01) ==
PROVIDERS: PCP Family Medicine; Visit Provider Family Medicine
DX: M25.552 Pain in left hip (principal); G89.29 Other chronic pain; Z96.642 Presence of left artificial hip joint; M25.562 Pain in left knee; M51.379 Other intervertebral disc degeneration, lumbosacral region without mention of lumbar back pain or lower extremity pain; Z12.2 Encounter for screening for malignant neoplasm of respiratory organs; Z87.891 Personal history of nicotine dependence
CPT/HCPCS: 71271; 72110; 73502; 73562